=== PATIENT | female | born 1955 | race Caucasian/White ===

== ENCOUNTER 2018-09-30 13:41 | Emergency (ER) | payer MEDICARE, OTHER ==
[~2018-09-30] VITALS: Ht 162.6 cm; Wt 100.2 kg
--- NOTE | 2018-09-30 13:50 | NUR ---
CECE FROM [facility] FOR GROUND LEVEL FALL THIS AM. PT USES WALKER AT [facility]. PT C/O PAIN AT MID-BACK AREA, LOWER BACK AREA, AND HIP. DENIES LOC. TO ER BED 9, HOOKED TO MONITOR, AWAITING MD ALVAREZ
--- NOTE | 2018-09-30 14:15 | NUR ---
PA FOSTER AT BEDSIDE
[2018-09-30] MEDS ORDERED: CYCLOBENZAPRINE 10 MG TABLET ONE (14:24)
[2018-09-30] MEDS ORDERED: ACETAMINOPHEN ES 500 MG TABLET ONE (14:24)
--- NOTE | 2018-09-30 14:27 | NUR ---
OUT FOR HEAD, CERVICAL, THORACIC AND LUMBAR CT
[2018-09-30] MEDS ORDERED: CYCLOBENZAPRINE 10 MG TABLET PO ONE (14:30)
[2018-09-30] MEDS ORDERED: ACETAMINOPHEN ES 500 MG TABLET PO ONE (14:30)
[2018-09-30 15:00] LABS: BASOPHILS # (AUTO) 0.1 /CMM (0.0-0.2); BASOPHILS % (AUTO) 1.1 % (0.0-2.0); EOSINOPHILS % (AUTO) 6.9 % (0.0-6.0); HEMATOCRIT 37 % (33-45); HEMOGLOBIN 11.9 g/dL (11.5-14.8); LYMPHOCYTES # (AUTO) 1.8 /CMM (0.8-4.8); LYMPHOCYTES % (AUTO) 27.9 % (20.0-44.0); MEAN CORPUSCULAR HGB CONC 33 g/dl (31.0-36.0); MEAN CORPUSCULAR VOLUME 95 fL (82-100); MONOCYTES # (AUTO) 0.5 /CMM (0.1-1.30); MONOCYTES % (AUTO) 7.2 % (2.0-12.0); NEUTROPHILS # (AUTO) 3.7 /CMM (1.8-8.9); NEUTROPHILS % (AUTO) 56.9 % (43.0-81.0); PLATELET COUNT (AUTO) 296 /CMM (150-450); RED BLOOD CELL COUNT(AUTO) 3.84 MIL/uL (4.0-5.2); WHITE BLOOD COUNT (AUTO) 6.4 K/uL (4.3-11.0)
[2018-09-30 15:07] LABS: CALCIUM, SERUM 8.8 mg/dL (8.5-10.1); CREATININE 1.7 mg/dL (0.6-1.3); POTASSIUM 4.8 mmol/L (3.5-5.1)
--- NOTE | 2018-09-30 16:43 | NUR ---
CALLED [facility] TO ARRANGE A S TRANSPORT BACK TO [facility]. ETA OF 193 GIVEN. TRIP#: [id number]
--- NOTE | 2018-09-30 19:15 | NUR ---
GOT CALL FROM TRANSPORT ETA NOW IS 2014
--- NOTE | 2018-09-30 19:18 | NUR ---
REPORT GIVEN TO ANCELMO RICKETTS FOR KANIKA
--- NOTE | 2018-09-30 19:27 | NUR ---
received report from sacha oliver for continuity of care.
[2018-09-30 20:53] VITALS: BP 126/92
[2018-11-03] MEDS ORDERED: DOCU-141 PO (13:42)
[2018-11-03] MEDS ORDERED: CARV6.252 PO (13:42)
== END 2018-09-30 20:54 ==
LOC: ER 13:44
DX: M54.5 Low back pain (principal); M54.2 Cervicalgia; M25.511 Pain in right shoulder; M25.551 Pain in right hip; R79.89 Other specified abnormal findings of blood chemistry; E03.9 Hypothyroidism, unspecified; I10 Essential (primary) hypertension; B05.9 Measles without complication; G40.909 Epilepsy, unspecified, not intractable, without status epilepticus; J45.909 Unspecified asthma, uncomplicated; B02.9 Zoster without complications; Z88.0 Allergy status to penicillin; W18.39XA Other fall on same level, initial encounter; Y93.89 Activity, other specified; Y92.89 Other specified places as the place of occurrence of the external cause; Y99.8 Other external cause status
CPT/HCPCS: 36415; 70450-TC; 72125-TC; 72128-TC; 72131-TC; 72192-TC; 73030-TC; 80048-TC; 85025-TC; 85730-TC

== ENCOUNTER 2018-10-18 12:22 | Inpatient (IN) | payer MEDICARE, OTHER ==
[2018-10-18] VITALS: BP 118/66
[~2018-10-18] VITALS: Ht 162.6 cm; Wt 98.9 kg
--- NOTE | 2018-10-18 12:22 | NUR ---
PT BIBPA FROM SNF FOR LEFT SIDE CP X TODAY, PT AAOX2-3, RESPIRATIONS EVEN AND UNLABORED, NO SOB, NAD NOTED, VSS, PENDING ER PROVIDER ANTONIO
[2018-10-18 12:46] LABS: BASOPHILS # (AUTO) 0.1 /CMM (0.0-0.2); BASOPHILS % (AUTO) 1.4 % (0.0-2.0); EOSINOPHILS % (AUTO) 13.9 % (0.0-6.0); HEMATOCRIT 35 % (33-45); HEMOGLOBIN 11.5 g/dL (11.5-14.8); LYMPHOCYTES # (AUTO) 1.3 /CMM (0.8-4.8); MEAN CORPUSCULAR HGB CONC 33 g/dl (31.0-36.0); MEAN CORPUSCULAR VOLUME 95 fL (82-100); MONOCYTES # (AUTO) 0.5 /CMM (0.1-1.30); MONOCYTES % (AUTO) 7.8 % (2.0-12.0); NEUTROPHILS # (AUTO) 3.3 /CMM (1.8-8.9); NEUTROPHILS % (AUTO) 55.9 % (43.0-81.0); PLATELET COUNT (AUTO) 335 /CMM (150-450); RED BLOOD CELL COUNT(AUTO) 3.73 MIL/uL (4.0-5.2)
[2018-10-18] MEDS ORDERED: ONDANSETRON HCL/PF 4 MG/2 ML VIAL ONE (12:48)
[2018-10-18] MEDS ORDERED: MORPHINE SULFATE INJ 10 MG/ML DISP.SYRIN ONE (12:49)
[2018-10-18 12:52] LABS: CALCIUM, SERUM 9.2 mg/dL (8.5-10.1); CREATININE 1.6 mg/dL (0.6-1.3); POTASSIUM 4.7 mmol/L (3.5-5.1)
[2018-10-18] MEDS ORDERED: ONDANSETRON HCL/PF 4 MG/2 ML VIAL IVP ONE (13:00)
[2018-10-18] MEDS ORDERED: MORPHINE SULFATE INJ 2 MG/ML DISP.SYRIN IV ONE (13:00)
--- NOTE | 2018-10-18 13:19 | NUR ---
PAGING EPIC CANTEEN MANAGER
--- NOTE | 2018-10-18 13:28 | NUR ---
CALLED NURSING TECHNOLOGY SPECIALIST FOR TELE BED
[2018-10-18] MEDS ORDERED: ASPI-1152 PO (13:29)
[2018-10-18] MEDS ORDERED: LEVO25TA9 PO (13:29)
[2018-10-18] MEDS ORDERED: LAMO100T PO (13:29)
[2018-10-18] MEDS ORDERED: GABA-532 PO (13:29)
[2018-10-18] MEDS ORDERED: HYDR-4384 PO (13:29)
[2018-10-18] MEDS ORDERED: TOPI50TA24 PO (13:29)
[2018-10-18] MEDS ORDERED: CYCL5TAB PO (13:29)
[2018-10-18] MEDS ORDERED: FLUT1DIS IH (13:29)
[2018-10-18] MEDS ORDERED: ASPIRIN 325 MG TABLET PO ONE (13:30)
[2018-10-18] MEDS ORDERED: ASPIRIN 325 MG TABLET ONE (13:35)
--- NOTE | 2018-10-18 13:57 | NUR ---
CALLED 1ST FLOOR TO GIVE REPORT, NURSE WENT ON BREAK, WILL CALL BACK
--- NOTE | 2018-10-18 14:41 | NUR ---
REPORT GIVEN TO JAMARCUS LICONA FOR KANIKA
--- NOTE | 2018-10-18 14:43 | NUR ---
RN ADMITTING NOTES PATIENT ADMITTED FOR ED VIA GURNEY. ABLE [place]. A/O X3 NO SIGNS OR SYMPTOMS OF RESPIRATORY DISTRESS NOTED C/O CHEST PAIN 9/10 NORCO GIVEN SKIN INTACT BASELINE MILD WEAKNESS TO (R) SIDE NO DIFFICULTY SWALLOWING. ABLE TO FOLLOW COMMANDS. VITALS TEMP 98.1 HR 81 RESP 20 O2 95% ON RA BP 142/80. LABS AND EKG DONE WILL CONTINUE TO MONITOR.
--- NOTE | 2018-10-18 14:59 | NUR ---
PT TRANSPORTED TO ROOM 120-2 TELE VIA ACLS PROTOCOL
[2018-10-18] MEDS ORDERED: ONDANSETRON HCL/PF 4 MG/2 ML VIAL IVP PRN (16:30)
[2018-10-18] MEDS: HYDROCODONE/APAP 5/325MG 1 EACH TABLET PO PRN (16:56)
[2018-10-18] MEDS: GABAPENTIN 100 MG CAPSULE PO SCH (18:18)
[2018-10-18] MEDS: LamoTRIgine 100 MG TABLET PO SCH (18:18)
[2018-10-18] MEDS: LEVOTHYROXINE SODIUM 25 MCG TABLET PO SCH (18:18)
[2018-10-18] MEDS: TOPIRAMATE 100 MG TABLET PO SCH (18:19)
[2018-10-18] MEDS: CARVEDILOL 6.25 MG TABLET PO SCH (18:19)
--- NOTE | 2018-10-18 19:47 | NUR ---
FRONT END ALIGNMENT SPECIALIST CLOSING NOTES REPORT GIVEN TO NOC. ENDORSED THAT TROPONIN IS TRENDING DOWN KANIKA.
[2018-10-18 20:00] VITALS: BP 112/67
[2018-10-18] MEDS: LEVOFLOXACIN 750 MG /D5W 150ML 750 MG in PREMIX 1 EA IV SCH (20:55)
--- NOTE | 2018-10-18 22:00 | NUR ---
MANPOWER DEVELOPMENT SPECIALIST NOTES RECEIVED PT ON BED. A/O X 4. ON ROOM AIR SATURATING WELL. ON TELE MONITOR SR. NO RESPIRATORY DISTRESS NOTED. IV ACCESS ON RAC #20 SL. HEAD OF BED ELEVATED. SIDE RAILS UP. CALL LIGHT WITHIN REACH. BED ALARM ON. WILL CONTINUE TO MONITOR PT CLOSELY.
[2018-10-18] MEDS ORDERED: MORPHINE SULFATE INJ 4 MG/ML DISP.SYRIN ONE ×2 (23:18→23:58)
[2018-10-18] MEDS: MORPHINE SULFATE INJ 2 MG/ML DISP.SYRIN IV PRN (23:21)
[2018-10-18] MEDS: NITROGLYCERIN 0.4 MG/TAB BOTTLE SL PRN ×2 (23:21→23:27)
--- NOTE | 2018-10-18 23:35 | NUR ---
ENGINEER CONDUCTOR NOTES PT LEFT SIDED BREAST AND SOME CHEST PAIN 6/10. GIVEN NITROGLYCERIN X2 AND MORPHINE 1MG. BLOOD PRESSURE WNL, SATURATING 94 ON ROOM AIR, NO RESPIRATORY DISTRESS NOTED. PT RELIEVED NO MORE CHEST PAIN. BREAST PAIN OF 3/10.
[2018-10-19] VITALS: BP 118/66
[2018-10-19] MEDS: MORPHINE SULFATE INJ 2 MG/ML DISP.SYRIN IV PRN (00:02)
--- NOTE | 2018-10-19 00:05 | NUR ---
CHEMIST STEROIDS NOTES PT COMPLAINTS OF BACK PAIN WITH SOME CHEST PAIN GIVEN MORPHINE 1MG. BLOOD PRESSURE 111/60, ON ROOM AIR 94 NO RESPIRATORY DISTRESS NOTED. ON TELE MONITOR SR 89. WILL MONITOR PT CLOSELY.
--- NOTE | 2018-10-19 01:07 | NUR ---
ACRYLIC FABRICATOR NOTES PAGED SELECTOR PACKER REGARDING TROPONIN OF 0.091. AWAITING ORDERS.
--- NOTE | 2018-10-19 02:03 | NUR ---
PROTOTYPE MACHINIST NOTES TERESA SORENSON ORDERED TROPONIN 8AM. WILL MONITOR PT CLOSELY.
--- NOTE | 2018-10-19 02:29 | NUR ---
SWEDISH MASSEUSE NOTES PT SLEEPING COMFORTABLE, NO COMPLAINTS OF PAIN.
[2018-10-19 04:00] VITALS: BP 108/68
[2018-10-19] MEDS: HYDROCODONE/APAP 5/325MG 1 EACH TABLET PO PRN ×2 (05:44→15:29)
--- NOTE | 2018-10-19 06:40 | NUR ---
REHAB ASSISTANT NOTES PT COMPLAINTS OF CHEST PAIN AND LEFT LOWER BREAST PAIN. RELIEVED BY MORPHINE. CALLED MODEL ENGINE MECHANIC FOR ORDERS, ORDERED ANOTHER TROPONIN LEVEL @ 8AM. HEAD OF BED ELEVATED. BED ALARM ON. SIDE RAILS UP. CALL LIGHT WITHIN REACH. WILL ENDORSE TO THE AM NURSE FOR CONTINUITY OF CARE.
[2018-10-19] MEDS: LEVOTHYROXINE SODIUM 25 MCG TABLET PO SCH (07:46)
[2018-10-19] MEDS: FLUTICASONE/VILANTEROL 1 EACH BLST.W.DEV IH SCH (07:47)
[2018-10-19] MEDS: GABAPENTIN 100 MG CAPSULE PO SCH ×2 (07:48→16:59)
[2018-10-19] MEDS: LamoTRIgine 100 MG TABLET PO SCH ×2 (07:48→16:59)
[2018-10-19] MEDS: CARVEDILOL 6.25 MG TABLET PO SCH ×2 (07:48→21:01)
[2018-10-19] MEDS: TOPIRAMATE 100 MG TABLET PO SCH ×2 (07:49→16:59)
[2018-10-19] MEDS: CYCLOBENZAPRINE 10 MG TABLET PO PRN (07:50)
[2018-10-19 08:00] VITALS: BP 113/74
[2018-10-19] MEDS: ASPIRIN EC 81 MG TABLET.DR PO SCH (08:02)
[2018-10-19] MEDS ORDERED: MORPHINE SULFATE INJ 10 MG/ML DISP.SYRIN IV PRN (08:30)
[2018-10-19] MEDS: ATORVASTATIN 10 MG TABLET PO SCH (10:08)
[2018-10-19 12:00] VITALS: BP 96/62
[2018-10-19] MEDS ORDERED: MAGNESIUM HYDROXIDE 30 ML UDC PO PRN (15:30)
[2018-10-19 16:00] VITALS: BP 102/70
[2018-10-19 16:33] LABS: BASOPHILS # (AUTO) 0.1 /CMM (0.0-0.2); BASOPHILS % (AUTO) 1.6 % (0.0-2.0); EOSINOPHILS % (AUTO) 14.2 % (0.0-6.0); HEMATOCRIT 33 % (33-45); HEMOGLOBIN 10.8 g/dL (11.5-14.8); LYMPHOCYTES # (AUTO) 1.3 /CMM (0.8-4.8); LYMPHOCYTES % (AUTO) 26.3 % (20.0-44.0); MEAN CORPUSCULAR HGB CONC 32 g/dl (31.0-36.0); MEAN CORPUSCULAR VOLUME 94 fL (82-100); MONOCYTES # (AUTO) 0.5 /CMM (0.1-1.30); MONOCYTES % (AUTO) 10.2 % (2.0-12.0); NEUTROPHILS # (AUTO) 2.3 /CMM (1.8-8.9); NEUTROPHILS % (AUTO) 47.7 % (43.0-81.0); PLATELET COUNT (AUTO) 319 /CMM (150-450); RED BLOOD CELL COUNT(AUTO) 3.57 MIL/uL (4.0-5.2); WHITE BLOOD COUNT (AUTO) 4.8 K/uL (4.3-11.0)
[2018-10-19 16:43] LABS: CALCIUM, SERUM 8.8 mg/dL (8.5-10.1); CREATININE 1.7 mg/dL (0.6-1.3); POTASSIUM 4.7 mmol/L (3.5-5.1)
--- NOTE | 2018-10-19 19:40 | NUR ---
MANAGER PROJECT MANAGEMENT OPENING NOTES RECEIVED PATIENT IN BED, ALERT, ORIENTED X 4. BREATHING EVEN AND UNLABORED. COMPLAINING OF L CHEST/ UNDER BREAST PAIN, 05/10. PAIN MANAGEMENT INITIATED. BP- 115/56, SR- 94. MORPHINE 1MG GIVEN ORDERED. PATIENT STATED MORPHINE IS WHAT HELPS HER BEST. TELE MONITOR IN PLACE, SR- 94. CALL LOWE WITHIN REACH. BED IN LOW, LOCKED POSITION. PATIENT STABLE ENDORSED BY THE MORNING RN. WILL CONTINUE TO MONITOR ACCORDINGLY
[2018-10-19 20:00] VITALS: BP 115/56
[2018-10-20] VITALS: BP 113/65
[2018-10-20] MEDS: HYDROCODONE/APAP 5/325MG 1 EACH TABLET PO PRN ×3 (02:33→22:55)
--- NOTE | 2018-10-20 02:36 | NUR ---
SWEAT BOX ATTENDANT NOTES PATIENT C/O SHARP PAIN ON AROUND LEFT ANKLE, 05/10. PATIENT SAID SHE EXPERIENCES THIS PAIN FROM TIME TO TIME. NORCO 5-325 GIVEN ORDERED.
[2018-10-20 04:00] VITALS: BP 116/60
--- NOTE | 2018-10-20 06:40 | NUR ---
GEODESY TEACHER CLOSING NOTES PATIENT RESTING IN BED, ALERT, ORIENTED X 4. BREATHING EVEN AND UNLABORED. NOT IN ANY DISTRESS. NO COMPLAINTS OF PAIN OR DISCOMFORT OF THIS TIME. TELE MONITOR IN PLACE, SINUS RHYTHM 84. SAFETY MEASURES IN PLACE. CALL LOWE WITHIN REACH. BED IN LOW, LOCKED POSITION. WILL ENDORSE KANIKA TO ONCOMING RN.
[2018-10-20 07:24] LABS: HEMATOCRIT 31 % (33-45); HEMOGLOBIN 10.1 g/dL (11.5-14.8); MEAN CORPUSCULAR HGB CONC 33 g/dl (31.0-36.0); MEAN CORPUSCULAR VOLUME 94 fL (82-100); PLATELET COUNT (AUTO) 283 /CMM (150-450); RED BLOOD CELL COUNT(AUTO) 3.27 MIL/uL (4.0-5.2); WHITE BLOOD COUNT (AUTO) 5.4 K/uL (4.3-11.0)
[2018-10-20 07:33] LABS: BILIRUBIN,TOTAL 0.2 mg/dL (0.2-1.0); CALCIUM, SERUM 8.7 mg/dL (8.5-10.1); CREATININE 1.8 mg/dL (0.6-1.3); MAGNESIUM 1.9 mg/dL (1.8-2.4); PHOSPHORUS 4.5 mg/dL (2.5-4.9); POTASSIUM 3.8 mmol/L (3.5-5.1); TOTAL PROTEIN, SERUM 6.4 g/dL (6.4-8.2)
--- NOTE | 2018-10-20 07:49 | NUR ---
LINEN CLERK NOTE RECEIVED PATIENT IN BED, RESTING COMFORTABLY IN BED AT THIS TIME, ON TELE MONITOR SR HR 91, RT AC HL INTACT , BED IN ,LOWEST AND LOCKED POSITION , CALL LIGHT WITHIN REACH , RESPIRATION UNLABORED ,ON RA ,NO SOB ,WILL CONT TO MONITOR CLOSELY
[2018-10-20 08:00] VITALS: BP 120/65
[2018-10-20] MEDS: TOPIRAMATE 100 MG TABLET PO SCH ×2 (08:28→16:48)
[2018-10-20] MEDS: LamoTRIgine 100 MG TABLET PO SCH ×2 (08:29→16:48)
[2018-10-20] MEDS: GABAPENTIN 100 MG CAPSULE PO SCH ×2 (08:30→16:48)
[2018-10-20] MEDS: ASPIRIN EC 81 MG TABLET.DR PO SCH (08:30)
[2018-10-20] MEDS: LEVOTHYROXINE SODIUM 25 MCG TABLET PO SCH (08:31)
[2018-10-20] MEDS: ATORVASTATIN 10 MG TABLET PO SCH (08:31)
[2018-10-20] MEDS: CARVEDILOL 6.25 MG TABLET PO SCH ×2 (08:36→20:49)
[2018-10-20] MEDS: FLUTICASONE/VILANTEROL 1 EACH BLST.W.DEV IH SCH (08:37)
[2018-10-20] MEDS: MUPIROCIN OINT 2% 22 GM TUBE SCH ×2 (08:45→20:51)
--- NOTE | 2018-10-20 09:00 | NUR ---
television parts tester note Doppler jm done as ordered negative ,dr arzola aware .also per dr cyndee duran do kidney us
[2018-10-20 10:03] LABS: EOSINOPHILS % (MANUAL) 14 % (0-4); LYMPHOCYTES % (MANUAL) 11 % (16-48); MONOCYTES % (MANUAL) 3 % (0-11.0); NEUTROPHILS % (MANUAL) 72 (42-76)
--- NOTE | 2018-10-20 10:44 | NUR ---
PURCHASER NOTE SPOOR WITH DR MCKENNA ABOUT TROP 0.065, WILL CONT TO MONITOR
[2018-10-20 12:00] VITALS: BP_SYST 120; BP_DIAS 65; BP_DIAS 66
--- NOTE | 2018-10-20 12:57 | NUR ---
TELE RNN NOTE US KIDNEY DONE ORDERED, UA COLLECTED ORDERED ,KEEP CLEAN DRY
[2018-10-20] MEDS: IV NS 0.9% 1,000 ML IV PRN (13:19)
--- NOTE | 2018-10-20 15:44 | NUR ---
VORTEX OPERATOR NOTE ASSISTED TO BR USING A WALKER , KEEP CLEAN DRY ,ALL NEEDS ATTENDED, CONT ON IVF ORDERED CALL LIGHT WITHIN REACH
[2018-10-20 16:00] VITALS: BP 94/65
[2018-10-20 17:31] LABS: APPEARANCE,URINE SL CLOUDY (CLEAR); BILIRUBIN,URINE NEGATIVE (NEGATIVE); BLOOD, URINE NEGATIVE Ery/uL (NEGATIVE); COLOR,URINE YELLOW (YELLOW); KETONES,URINE NEGATIVE (NEGATIVE); LEUKOCYTE ESTERASE ,URINE NEGATIVE (NEGATIVE); NITRITE, URINE NEGATIVE (NEGATIVE); PH,URINE 6.5 (5.0-8.0); PROTEIN,URINE NEGATIVE (NEGATIVE); UGLUCOSE NEGATIVE (NEGATIVE); UROBILINOGEN,URINE 0.2 EU/dL (0.2)
[2018-10-20 17:48] LABS: CREATININE, URINE 35.5 MG/DL (30.0-125.0); URINE TOTAL PROTEIN 3.2 mg/dL (0-11.9)
[2018-10-20 18:33] LABS: EOSINOPHIL,URINE None Seen
--- NOTE | 2018-10-20 18:41 | NUR ---
CHEMISTRY TUTOR NOTE NEW HL ON LT HAND RAMIRO 24 INSERTED WITH GOOD V BLOOD RETURN ,WILL F\U
--- NOTE | 2018-10-20 19:50 | NUR ---
ACTOR UNDERSTUDY NOTE, RECEIVED PATIENT IN BED WATCHING TV AT THIS TIME, BREATHING EVEN AND UNLABORED , NO SOB/ACUTE DISTRESS NOTED AT THIS TIME, ON TELE MONITOR SR HR 90S AT THIS TIME, RT HAND IV ACCESS INTACT AND PATENT, CALL LIGHT WITHIN REACH, BED IN LOW AND LOCKED POSITION, WILL CONTINUE TO MONITOR CLOSELY,
[2018-10-20 20:00] VITALS: BP 117/53
[2018-10-20] MEDS: LEVOFLOXACIN 750 MG /D5W 150ML 750 MG in PREMIX 1 EA IV SCH (20:48)
[2018-10-20] MEDS: CYCLOBENZAPRINE 10 MG TABLET PO PRN (20:49)
[2018-10-21] MEDS: IV NS 0.9% 1,000 ML IV PRN (03:27)
[2018-10-21 04:00] VITALS: BP 111/63
--- NOTE | 2018-10-21 06:40 | NUR ---
RN CLOSING NOTES, PATIENT IN BED SLEEPING AT THIS TIME, BREATHING EVEN AND UNLABORED , NO SOB/ACUTE DISTRESS NOTED AT THIS TIME, RT HAND IV ACCESS INTACT AND PATENT, IVF INFUSING WELL AND PATIENT TOLERATED WELL, PATIENT STABLE DURING THE NIGHT, CALL LIGHT WITHIN REACH, BED IN LOW AND LOCKED POSITION, WILL ENDORSE CONTINUITY OF CARE TO ONCOMING NURSE.
[2018-10-21 07:06] LABS: BASOPHILS # (AUTO) 0.1 /CMM (0.0-0.2); EOSINOPHILS % (AUTO) 11.3 % (0.0-6.0); HEMATOCRIT 32 % (33-45); HEMOGLOBIN 10.4 g/dL (11.5-14.8); LYMPHOCYTES # (AUTO) 1.6 /CMM (0.8-4.8); LYMPHOCYTES % (AUTO) 30.1 % (20.0-44.0); MEAN CORPUSCULAR HGB CONC 33 g/dl (31.0-36.0); MEAN CORPUSCULAR VOLUME 94 fL (82-100); MONOCYTES # (AUTO) 0.6 /CMM (0.1-1.30); MONOCYTES % (AUTO) 11.8 % (2.0-12.0); NEUTROPHILS # (AUTO) 2.5 /CMM (1.8-8.9); NEUTROPHILS % (AUTO) 45.8 % (43.0-81.0); PLATELET COUNT (AUTO) 264 /CMM (150-450); RED BLOOD CELL COUNT(AUTO) 3.41 MIL/uL (4.0-5.2); WHITE BLOOD COUNT (AUTO) 5.4 K/uL (4.3-11.0)
[2018-10-21 07:33] LABS: ALBUMIN 2.9 g/dL (3.4-5.0); BILIRUBIN,TOTAL 0.2 mg/dL (0.2-1.0); CALCIUM, SERUM 8.4 mg/dL (8.5-10.1); CREATININE 1.6 mg/dL (0.6-1.3); MAGNESIUM 1.9 mg/dL (1.8-2.4); POTASSIUM 4.2 mmol/L (3.5-5.1); TOTAL PROTEIN, SERUM 6.3 g/dL (6.4-8.2)
[2018-10-21 08:00] VITALS: BP 127/75
[2018-10-21 08:16] VITALS: BP 127/75
[2018-10-21] MEDS: LEVOTHYROXINE SODIUM 25 MCG TABLET PO SCH (08:43)
[2018-10-21] MEDS ORDERED: CARVEDILOL 12.5 MG TABLET PO SCH (09:00)
[2018-10-21] MEDS: ATORVASTATIN 10 MG TABLET PO SCH (09:57)
[2018-10-21] MEDS: TOPIRAMATE 100 MG TABLET PO SCH (09:57)
[2018-10-21] MEDS: LamoTRIgine 100 MG TABLET PO SCH (09:57)
[2018-10-21] MEDS: GABAPENTIN 100 MG CAPSULE PO SCH (09:57)
[2018-10-21] MEDS: ASPIRIN EC 81 MG TABLET.DR PO SCH (09:58)
[2018-10-21] MEDS: FLUTICASONE/VILANTEROL 1 EACH BLST.W.DEV IH SCH (10:06)
[2018-10-21] MEDS: MUPIROCIN OINT 2% 22 GM TUBE SCH (10:06)
[2018-10-21] MEDS: HYDROCODONE/APAP 5/325MG 1 EACH TABLET PO PRN (11:40)
[2018-10-21 12:39] VITALS: BP 138/75
[2018-10-22] MEDS ORDERED: REGADENOSON 0.4 MG/5 ML DISP.SYRIN IVP ONE (08:00)
[2018-10-22 10:17] LABS: *SPE A/G RATIO 1.1 (0.7-1.7); *SPE ALBUMIN 3.1 g/dL (2.9-4.4); *SPE ALPHA-1-GLOBULIN 0.2 g/dL (0.0-0.4); *SPE ALPHA-2-GLOBULIN 0.7 g/dL (0.4-1.0); *SPE GLOBULIN, TOTAL 2.8 g/dL (2.2-3.9); *SPE M-SPIKE Not Observed g/dL (Not Observed); *SPEGAMMA GLOBULIN 0.9 g/dL (0.4-1.8)
[2018-10-22 12:10] LABS: PTH, INTACT 58 pg/mL (15-65)
[2018-11-03] MEDS ORDERED: CARV6.252 PO (13:42)
[2018-11-03] MEDS ORDERED: DOCU-141 PO (13:42)
== END 2018-10-21 14:30 | disposition home or self-care (01) | DRG 280 ==
LOC: ER 12:23 → UNDOADMIN 14:02 → TELE1 14:02 → ER 15:12 → TELE1 15:40 → MEDSG1 10-20 20:50
PROVIDERS: ADMIT Internal Medicine; ATTEND Internal Medicine
DX: I21.4 Non-ST elevation (NSTEMI) myocardial infarction (principal); N17.0 Acute kidney failure with tubular necrosis; J18.9 Pneumonia, unspecified organism; G40.909 Epilepsy, unspecified, not intractable, without status epilepticus; J45.909 Unspecified asthma, uncomplicated; E78.5 Hyperlipidemia, unspecified; F32.9 Major depressive disorder, single episode, unspecified; Z98.890 Other specified postprocedural states; Z88.0 Allergy status to penicillin; Z88.8 Allergy status to other drugs, medicaments and biological substances; Z91.018 Allergy to other foods; I12.9 Hypertensive chronic kidney disease with stage 1 through stage 4 chronic kidney disease, or unspecified chronic kidney disease; N18.9 Chronic kidney disease, unspecified; R73.9 Hyperglycemia, unspecified; F39 Unspecified mood [affective] disorder; J44.9 Chronic obstructive pulmonary disease, unspecified
CPT/HCPCS: 36415; 71045-TC; 76770-TC; 80048-TC; 80053-TC; 81000-TC; 82550-TC; 82570-TC; 83735-TC; 83970; 84100-TC; 84155; 84155-TC; 84165; 84300-TC; 84484-TC; 85025-TC; 85730-TC; 87081-TC; 93307-TC; 93970-TC; A4216; A6402; G0378; J1956; J2270; J2405; J7030

== ENCOUNTER 2018-11-01 16:50 | Inpatient (IN) | payer MEDICARE, OTHER ==
[~2018-11-01] VITALS: Ht 162.6 cm; Wt 98.4 kg
[~2018-11-01 16:50] MED LIST: ASPI-1152 PO; CYCL5TAB PO; FLUT1DIS IH; GABA-532 PO; HYDR-4384 PO; LAMO100T PO; LEVO25TA9 PO; TOPI50TA24 PO
--- NOTE | 2018-11-01 16:50 | NUR ---
PT BIBRA FROM [facility] FOR CP X 2HRS 910 RADIATING TO L CLAVICLE, PT IS AAOX4, NOT IN RESPIRATORY DISTRESS, V/S STABLE, KEPT RESTED AND COMFORTABLE, HOOKED TO MONITOR.
--- NOTE | 2018-11-01 17:00 | NUR ---
SEEN AND EXAMINED BY DR. VERA.
--- NOTE | 2018-11-01 17:10 | NUR ---
PT LABS DRAWNED AND SENT TO LAB. AWAITING RESULTS.
[2018-11-01 17:20] LABS: BASOPHILS # (AUTO) 0.1 /CMM (0.0-0.2); BASOPHILS % (AUTO) 1.8 % (0.0-2.0); EOSINOPHILS % (AUTO) 17.4 % (0.0-6.0); HEMATOCRIT 36 % (33-45); HEMOGLOBIN 11.5 g/dL (11.5-14.8); LYMPHOCYTES % (AUTO) 29.3 % (20.0-44.0); MEAN CORPUSCULAR HGB CONC 32 g/dl (31.0-36.0); MEAN CORPUSCULAR VOLUME 93 fL (82-100); MONOCYTES # (AUTO) 0.5 /CMM (0.1-1.30); MONOCYTES % (AUTO) 7.5 % (2.0-12.0); PLATELET COUNT (AUTO) 380 /CMM (150-450); RED BLOOD CELL COUNT(AUTO) 3.82 MIL/uL (4.0-5.2); WHITE BLOOD COUNT (AUTO) 6.9 K/uL (4.3-11.0)
[2018-11-01] MEDS ORDERED: ATOR10TA PEG (17:20)
[2018-11-01] MEDS ORDERED: MONT10TA22 PO (17:20)
[2018-11-01] MEDS ORDERED: LISI10TA5 PO (17:20)
--- NOTE | 2018-11-01 17:41 | NUR ---
RADIOLOGY AT BEDSIDE FOR XRAY.
[2018-11-01 17:52] LABS: CALCIUM, SERUM 9.6 mg/dL (8.5-10.1); CARBON DIOXIDE 25 mmol/L (21-32); CHLORIDE 107 mmol/L (98-107); CREATININE 1.5 mg/dL (0.6-1.3); GLUCOSE 110 mg/dL (74-106); POTASSIUM 4.4 mmol/L (3.5-5.1); SODIUM SERUM 144 mmol/L (136-145); UREA NITROGEN, BLOOD 20 mg/dL (7-18)
[2018-11-01 17:57] LABS: ALANINE AMINOTRANSFERASE 14 U/L (12-78); ALBUMIN 3.8 g/dL (3.4-5.0); ALKALINE PHOSPHATASE 147 U/L (46-116); ASPARTATE AMINOTRANSFERASE 15 U/L (15-37); BILIRUBIN,DIRECT 0.1 mg/dL (0.0-0.2); BILIRUBIN,TOTAL 0.3 mg/dL (0.2-1.0); TOTAL PROTEIN, SERUM 7.9 g/dL (6.4-8.2)
--- NOTE | 2018-11-01 19:06 | NUR ---
REPORT GIVEN TO JAMARCUS SPENCE FOR KANIKA.
--- NOTE | 2018-11-01 19:17 | NUR ---
Patient is resting comfortably in bed with eyes closed. Easily aroused. VSS. NAD NOTED.
[2018-11-01] MEDS ORDERED: DOCUSATE SODIUM 100 MG CAPSULE PO PRN (19:30)
[2018-11-01] MEDS ORDERED: MAG HYDROX/AL HYDROX/SIMETH 30 ML UDC PO PRN (19:30)
[2018-11-01] MEDS ORDERED: ONDANSETRON HCL/PF 4 MG/2 ML VIAL IVP PRN (19:30)
[2018-11-01] MEDS ORDERED: ACETAMINOPHEN 325 MG TABLET PO PRN (19:30)
[2018-11-01] MEDS ORDERED: NITROGLYCERIN 0.4 MG/TAB BOTTLE SL PRN (19:30)
--- NOTE | 2018-11-01 20:00 | NUR ---
PT IS GOING TO 324-2, TELE. ADMITTING IS T STATCY, DNP
--- NOTE | 2018-11-01 20:10 | NUR ---
Report given to HUSEYIN RICKETTS FOR KANIKA.
[2018-11-01 20:22] VITALS: BP 138/75
[2018-11-01 20:25] VITALS: BP 138/75
[2018-11-01] MEDS ORDERED: ASPIRIN 81 MG TAB.CHEW PO ONE (20:30)
--- NOTE | 2018-11-01 20:40 | NUR ---
MANAGER ENVIRONMENTAL ADMITTING NOTES ADMITTED 64 Y/O FEMALE PATIENT VIA GURNEY, BREATHING EVEN AND UNLABORED, WITH COMPLAINTS OF MILD DISCOMFORT NOTED, ALL NEEDS ATTENDED, CONNECTED TO EXTERNAL TELE MONITOR,ADMISSION AND INITIAL ASSESSMENT DONE. SAFETY MEASURES IN PLACED. WILL MONITOR ACCORDINGLY.
[2018-11-01] MEDS: MONTELUKAST SODIUM (10MG) 10 MG TABLET PO SCH (22:00)
[2018-11-01] MEDS ORDERED: SIMVASTATIN 20 MG TABLET PO SCH (22:00)
[2018-11-02] VITALS: BP 103/66
[2018-11-02] MEDS: HYDROCODONE/APAP 5/325MG 1 EACH TABLET PO PRN ×2 (00:26→12:21)
--- NOTE | 2018-11-02 00:40 | NUR ---
LITHOGRAPHIC PLATEMAKER NOTES REPORT GIVEN TO NURSE ESPINO FOR CONTINUITY OF CARE.
--- NOTE | 2018-11-02 00:52 | NUR ---
WHEAT INSPECTOR OPENING NOTES: RECEIVED PT ON ROOM AIR AND IS TOLERATING WELL. PT ON TELE MONITOR AND READING SHOWS SR 88 WITH INVERTED T WAVE. PT SAYING HER CHEST PAIN IS GRADUALLY GOING DOWN SHE JUST RECEIVED PAIN MED. PT HAS IV ON R AC #20G AND IS PATENT AND INTACT. CURRENTLY H/L. BED ALARM ACTIVATED. INSTRUCTED PT TO USE CALL LIGHT WHEN SHE NEEDS ASSISTANCE. BED KEPT IN LOW, LOCKED POSITION, AND SIDE RAILS X 2UP. WILL CONTINUE TO MONITOR PT.
[2018-11-02] MEDS ORDERED: ASPIRIN EC 81 MG TABLET.DR PO ONE (00:57)
--- NOTE | 2018-11-02 03:46 | NUR ---
ALUMINA PLANT SUPERVISOR NOTES: PT COMPLAINING OF A HEADACHE SHE JUST WOKE UP. PT WAS ADMINISTERED TYLENOL 650MG PO. WILL CONTINUE TO MONITOR.
[2018-11-02 04:00] VITALS: BP 104/61
[2018-11-02 07:14] LABS: BASOPHILS # (AUTO) 0.1 /CMM (0.0-0.2); BASOPHILS % (AUTO) 1.5 % (0.0-2.0); EOSINOPHILS % (AUTO) 17.4 % (0.0-6.0); HEMATOCRIT 34 % (33-45); HEMOGLOBIN 11.1 g/dL (11.5-14.8); LYMPHOCYTES # (AUTO) 1.9 /CMM (0.8-4.8); LYMPHOCYTES % (AUTO) 27.7 % (20.0-44.0); MEAN CORPUSCULAR HGB CONC 33 g/dl (31.0-36.0); MEAN CORPUSCULAR VOLUME 92 fL (82-100); MONOCYTES # (AUTO) 0.6 /CMM (0.1-1.30); MONOCYTES % (AUTO) 8.9 % (2.0-12.0); NEUTROPHILS # (AUTO) 3.1 /CMM (1.8-8.9); NEUTROPHILS % (AUTO) 44.5 % (43.0-81.0); PLATELET COUNT (AUTO) 320 /CMM (150-450); RED BLOOD CELL COUNT(AUTO) 3.68 MIL/uL (4.0-5.2)
[2018-11-02 07:30] LABS: ALBUMIN 3.4 g/dL (3.4-5.0); BILIRUBIN,TOTAL 0.3 mg/dL (0.2-1.0); CALCIUM, SERUM 8.8 mg/dL (8.5-10.1); CREATININE 1.6 mg/dL (0.6-1.3); MAGNESIUM 2.2 mg/dL (1.8-2.4); PHOSPHORUS 4.7 mg/dL (2.5-4.9); POTASSIUM 4.3 mmol/L (3.5-5.1)
[2018-11-02 07:40] LABS: THYROID STIMULATING HORMONE 1.872 uIU/mL (0.358-3.74)
--- NOTE | 2018-11-02 07:41 | NUR ---
MANAGER SALES TRAINING CLOSING NOTES: ALL NEEDS WERE ATTENDED AND ANTICIPATED FOR. PT REMAINS ON ROOM AIR AND IS TOLERATING WELL. PT ASLEEP AT THIS TIME. PT'S IV REMAINS INTACT. CURRENTLY H/L. BED ALARM ACTIVATED. BED KEPT IN LOW, LOCKED POSITION, AND SIDE RAILS X2UP. PT ON TELE BOX AND READING SHOWS SR 70S WITH INVERTED T WAVE. BREAKFAST TRAY TO BE HELD. ENDORSED TO AM NURSE FOR KANIKA.
[2018-11-02 08:00] VITALS: BP_SYST 133; BP_SYST 139; BP_DIAS 68; BP_DIAS 70
[2018-11-02] MEDS ORDERED: CYCLOBENZAPRINE 10 MG TABLET PO PRN (09:00)
[2018-11-02] MEDS ORDERED: LISINOPRIL (10MG) 10 MG TABLET PO SCH (09:00)
[2018-11-02] MEDS ORDERED: FLUTICASONE/SALMETEROL DISKUS IH SCH (09:00)
[2018-11-02] MEDS: IV NS 0.9% 500 ML IV PRN ×2 (11:25→21:07)
[2018-11-02] MEDS: GABAPENTIN 100 MG CAPSULE PO SCH ×2 (12:07→18:13)
[2018-11-02] MEDS: ASPIRIN 81 MG TAB.CHEW PO SCH (12:07)
[2018-11-02] MEDS: FLUTICASONE/VILANTEROL 1 EACH BLST.W.DEV IH SCH (12:07)
[2018-11-02] MEDS: LamoTRIgine 100 MG TABLET PO SCH ×2 (12:08→18:13)
[2018-11-02] MEDS: CARVEDILOL 6.25 MG TABLET PO SCH ×2 (12:08→21:00)
[2018-11-02] MEDS: LEVOTHYROXINE SODIUM 25 MCG TABLET PO SCH (12:08)
[2018-11-02] MEDS: TOPIRAMATE 25 MG TABLET PO SCH ×2 (12:09→18:13)
[2018-11-02] MEDS: ATORVASTATIN 10 MG TABLET PEG SCH (12:09)
[2018-11-02 14:34] LABS: APPEARANCE,URINE CLEAR (CLEAR); BILIRUBIN,URINE NEGATIVE (NEGATIVE); BLOOD, URINE NEGATIVE Ery/uL (NEGATIVE); COLOR,URINE YELLOW (YELLOW); KETONES,URINE NEGATIVE (NEGATIVE); LEUKOCYTE ESTERASE ,URINE NEGATIVE (NEGATIVE); NITRITE, URINE NEGATIVE (NEGATIVE); PROTEIN,URINE NEGATIVE (NEGATIVE); UGLUCOSE NEGATIVE (NEGATIVE); UROBILINOGEN,URINE 0.2 EU/dL (0.2)
[2018-11-02 15:01] LABS: CREATININE, URINE 131.7 MG/DL (30.0-125.0); URINE TOTAL PROTEIN 14.1 mg/dL (0-11.9)
[2018-11-02 16:00] VITALS: BP 100/67
[2018-11-02 16:05] LABS: EOSINOPHIL,URINE None Seen
--- NOTE | 2018-11-02 18:00 | NUR ---
dr. arzola,dr. villanueva in to see pt. consent for ct angio on 11/03 signed.pt. medicated x2 for chest pain with norco and flexeril with relief.urine sent as per orders in computer.
--- NOTE | 2018-11-02 19:05 | NUR ---
RN MS OPENING NOTES RECEIVED PATIENT IN BED, AWAKE ALERT AND ORIENTED X2, ABLE TO MAKE SIMPLE NEEDS KNOWN, RESPIRATIONS EVEN AND UNLABORED WITH EQUAL RISE AND FALL OF CHEST, NO SOB, DENIES ANY PAIN OR DISCOMFORT AT THIS TIME, IV SITE TO RIGHT AC#20G INTACT AND PATENT , IVF RUNNING ORDERED, ORIENTED TO STAFF AND CALL LIGHT AND KEPT WITHIN REACH,SAFETY PRECAUTIONS IN PLACE, LOW BED AND LOCKED WILL CONTINUE TO MONITOR AND ATTEND TO NEEDS REMAINS COMFORTABLE AT THIS TIME.
[2018-11-02 20:00] VITALS: BP 103/62
[2018-11-02] MEDS: MONTELUKAST SODIUM (10MG) 10 MG TABLET PO SCH (21:07)
[2018-11-03 07:06] LABS: BASOPHILS # (AUTO) 0.1 /CMM (0.0-0.2); BASOPHILS % (AUTO) 1.7 % (0.0-2.0); EOSINOPHILS % (AUTO) 16.3 % (0.0-6.0); HEMATOCRIT 32 % (33-45); HEMOGLOBIN 10.4 g/dL (11.5-14.8); LYMPHOCYTES # (AUTO) 2.2 /CMM (0.8-4.8); LYMPHOCYTES % (AUTO) 35.9 % (20.0-44.0); MEAN CORPUSCULAR HGB CONC 33 g/dl (31.0-36.0); MEAN CORPUSCULAR VOLUME 92 fL (82-100); MONOCYTES # (AUTO) 0.4 /CMM (0.1-1.30); MONOCYTES % (AUTO) 6.7 % (2.0-12.0); NEUTROPHILS # (AUTO) 2.4 /CMM (1.8-8.9); NEUTROPHILS % (AUTO) 39.4 % (43.0-81.0); PLATELET COUNT (AUTO) 300 /CMM (150-450); RED BLOOD CELL COUNT(AUTO) 3.43 MIL/uL (4.0-5.2); WHITE BLOOD COUNT (AUTO) 6.1 K/uL (4.3-11.0)
--- NOTE | 2018-11-03 07:10 | NUR ---
RN MS OPENING NOTES PATIENT IN BED, AWAKE ALERT AND ORIENTED X2, ABLE TO MAKE SIMPLE NEEDS KNOWN, RESPIRATIONS EVEN AND UNLABORED WITH EQUAL RISE AND FALL OF CHEST, NO SOB, , IV SITE TO RIGHT AC#20G AND LEFT AC #18 G INTACT AND PATENT, NPO SINCE MIDNIGHT FOR PROCEDURE , IVF RUNNING ORDERED, CALL LIGHT KEPT WITHIN REACH,SAFETY PRECAUTIONS IN PLACE, LOW BED AND LOCKED WILL CONTINUE TO MONITOR AND ATTEND TO NEEDS REMAINS COMFORTABLE AT THIS TIME AND ENDORSE TO NEXT SHIFT, PATIENT COMPLAINT OF HEADACHE OFFERED PAIN MEDICATION TYLENOL STATES " ILL JUST WAIT IT OUT."
--- NOTE | 2018-11-03 07:20 | NUR ---
RN OPENING NOTES PT AWAKE AND RESTING IN BED. NO COMPLAINTS OF SOB OR DISTRESS AT THIS TIME. PT HAS A LEFT AC #18 INTACT AND PATENT, PT ALSO HAS A RIGHT AC #20 INTACT AND RUNNING NS @60ML/HR. PT SCHEDULED FOR CTCA @0900. SAFETY PRECAUTIONS IN PLACE, BED IN LOWEST LOCKED POSITION, X2 SIDE RAILS UP AND CALL LIGHT WITHIN REACH. WILL CONTINUE TO MONITOR.
[2018-11-03] MEDS: LEVOTHYROXINE SODIUM 25 MCG TABLET PO SCH (07:30)
[2018-11-03 07:34] LABS: ALBUMIN 3.1 g/dL (3.4-5.0); BILIRUBIN,TOTAL 0.3 mg/dL (0.2-1.0); CALCIUM, SERUM 8.7 mg/dL (8.5-10.1); CREATININE 1.5 mg/dL (0.6-1.3); PHOSPHORUS 4.2 mg/dL (2.5-4.9); POTASSIUM 3.9 mmol/L (3.5-5.1); TOTAL PROTEIN, SERUM 6.3 g/dL (6.4-8.2)
[2018-11-03 08:00] VITALS: BP 103/63
[2018-11-03] MEDS: CARVEDILOL 6.25 MG TABLET PO SCH (09:00)
[2018-11-03] MEDS: ASPIRIN 81 MG TAB.CHEW PO SCH (09:00)
[2018-11-03] MEDS: TOPIRAMATE 25 MG TABLET PO SCH ×2 (09:00→17:13)
[2018-11-03] MEDS: GABAPENTIN 100 MG CAPSULE PO SCH ×2 (09:00→17:04)
[2018-11-03] MEDS: ATORVASTATIN 10 MG TABLET PEG SCH (09:00)
[2018-11-03] MEDS: LamoTRIgine 100 MG TABLET PO SCH ×2 (09:00→17:04)
[2018-11-03] MEDS: FLUTICASONE/VILANTEROL 1 EACH BLST.W.DEV IH SCH (09:51)
[2018-11-03] MEDS ORDERED: METOPROLOL TARTRATE INJ 5 MG/5 ML AMPUL ONE ×4 (11:04→12:34)
[2018-11-03] MEDS ORDERED: IV NS 0.9% 250 ML IV ONE (11:19)
[2018-11-03] MEDS ORDERED: IOHEXOL-350 100 ML VIAL IV ONE ×2 (11:19→12:20)
[2018-11-03] MEDS ORDERED: CT SWABBABLE VALVE TRANS SET 1 EA INFUS.SET MC ONE (11:19)
[2018-11-03] MEDS ORDERED: NITROGLYCERIN 0.4 MG/TAB BOTTLE ONE (11:39)
[2018-11-03] MEDS ORDERED: DOCU-141 PO (13:42)
[2018-11-03] MEDS ORDERED: CARV6.252 PO (13:42)
[2018-11-03 16:00] VITALS: BP 130/82
--- NOTE | 2018-11-03 16:56 | NUR ---
MS RN NOTES TRANSPORTATION ARRANGED WITH [facility], SPOKE WITH [facility]HMA WITH TRIP # [id number] [place] [id number] [facility], [place], [address]
[2018-11-03] MEDS: HYDROCODONE/APAP 5/325MG 1 EACH TABLET PO PRN (17:04)
--- NOTE | 2018-11-03 18:18 | NUR ---
RN CLOSING NOTES
--- NOTE | 2018-11-03 18:51 | NUR ---
RN CLOSING NOTES PT AWAKE AND RESTING IN BED. ALL PATIENT NEEDS MET DURING THE DAY. HAS A RIGHT AC #20 INTACT AND PATENT. PT SCHEDULED FOR DISCHARGE AT 2029. SAFETY PRECAUTIONS IN PLACE, BED IN LOWEST LOCKED POSITION, X2 SIDE RAILS UP AND CALL LIGHT WITHIN REACH. WILL ENDORSE TO DAY SHIFT NURSE FOR CONTINUITY OF CARE.
== END 2018-11-03 19:30 | DRG 205 ==
LOC: ER 16:56 → TELE 20:15 → MED 11-02 08:54
PROVIDERS: ADMIT Registered Nurse; ATTEND Registered Nurse
DX: M94.0 Chondrocostal junction syndrome [Tietze] (principal); N17.0 Acute kidney failure with tubular necrosis; I25.10 Atherosclerotic heart disease of native coronary artery without angina pectoris; I12.9 Hypertensive chronic kidney disease with stage 1 through stage 4 chronic kidney disease, or unspecified chronic kidney disease; N18.9 Chronic kidney disease, unspecified; B02.9 Zoster without complications; J45.909 Unspecified asthma, uncomplicated; E78.5 Hyperlipidemia, unspecified; E66.01 Morbid (severe) obesity due to excess calories; Z68.37 Body mass index [BMI] 37.0-37.9, adult; D64.9 Anemia, unspecified; Z79.51 Long term (current) use of inhaled steroids; Z79.82 Long term (current) use of aspirin
CPT/HCPCS: 36415; 71045-TC; 75574; 80048-TC; 80053-TC; 80061-TC; 80076-TC; 81000-TC; 82570-TC; 83735-TC; 84100-TC; 84155-TC; 84300-TC; 84443-TC; 84484-TC; 85025-TC; 85730-TC; 87081-TC; G0378; J3490; J7030; J7040; J7050; Q9967

== ENCOUNTER 2018-11-18 21:03 | Emergency (ER) | payer MEDICARE, OTHER ==
[~2018-11-18] VITALS: Ht 162.6 cm; Wt 93.0 kg
[~2018-11-18 21:03] MED LIST changes: +ATOR10TA PEG; +CARV6.252 PO; +DOCU-141 PO; +LISI10TA5 PO; +MONT10TA22 PO
--- NOTE | 2018-11-18 21:09 | NUR ---
PT BIBPA FROM ASSISTED FOR NAUSEA, ABD BLOATING, DIARRHEA, WEAK X2 DAYS, PT AAOX4, PT ON MONITOR, VSS, NAD NOTED, PENDING ER PROVIDER ASHLEIGHAL
[2018-11-18 22:05] LABS: BASOPHILS # (AUTO) 0.1 /CMM (0.0-0.2); BASOPHILS % (AUTO) 1.1 % (0.0-2.0); EOSINOPHILS % (AUTO) 14.3 % (0.0-6.0); HEMATOCRIT 31 % (33-45); LYMPHOCYTES # (AUTO) 1.8 /CMM (0.8-4.8); LYMPHOCYTES % (AUTO) 26.7 % (20.0-44.0); MEAN CORPUSCULAR HGB CONC 33 g/dl (31.0-36.0); MEAN CORPUSCULAR VOLUME 92 fL (82-100); MONOCYTES # (AUTO) 0.5 /CMM (0.1-1.30); MONOCYTES % (AUTO) 7.2 % (2.0-12.0); NEUTROPHILS # (AUTO) 3.4 /CMM (1.8-8.9); NEUTROPHILS % (AUTO) 50.7 % (43.0-81.0); PLATELET COUNT (AUTO) 304 /CMM (150-450); RED BLOOD CELL COUNT(AUTO) 3.34 MIL/uL (4.0-5.2); WHITE BLOOD COUNT (AUTO) 6.8 K/uL (4.3-11.0)
[2018-11-18 22:17] LABS: CALCIUM, SERUM 8.9 mg/dL (8.5-10.1); CREATININE 1.7 mg/dL (0.6-1.3); POTASSIUM 4.4 mmol/L (3.5-5.1)
[2018-11-18 22:19] LABS: APPEARANCE,URINE Slightly Cloudy (CLEAR); BILIRUBIN,URINE Negative (NEGATIVE); BLOOD, URINE Trace-lysed Ery/uL (NEGATIVE); COLOR,URINE Yellow (YELLOW); KETONES,URINE Negative (NEGATIVE); LEUKOCYTE ESTERASE ,URINE Negative (NEGATIVE); NITRITE, URINE Negative (NEGATIVE); PH,URINE 5.5 (5.0-8.0); PROTEIN,URINE Negative (NEGATIVE); UGLUCOSE Negative (NEGATIVE); UROBILINOGEN,URINE 0.2 EU/dL (0.2)
[2018-11-18 22:23] LABS: ALBUMIN 3.3 g/dL (3.4-5.0); BILIRUBIN,DIRECT 0.1 mg/dL (0.0-0.2); BILIRUBIN,TOTAL 0.2 mg/dL (0.2-1.0); TOTAL PROTEIN, SERUM 6.8 g/dL (6.4-8.2)
[2018-11-18 22:27] LABS: BACTERIA,URINE Few /HPF (None Seen); SQUAMOUS EPITHELIAL CELL,UR Few /HPF (None Seen); WBC,URINE 0-2 /HPF (0-3)
[2018-11-18] MEDS ORDERED: IV NS 0.9% 1,000 ML BAG IV ONE (23:00)
--- NOTE | 2018-11-18 23:00 | NUR ---
NEW ORDERS FOR IV FLUIDS, IV STARTED RAC20.
[2018-11-18] MEDS ORDERED: LOPERAMIDE HCL (2 MG CAP) 2 MG CAPSULE PO ONE (23:37)
[2018-11-19] MEDS ORDERED: LOPERAMIDE HCL (2 MG CAP) 2 MG CAPSULE PO ONE
--- NOTE | 2018-11-19 00:20 | NUR ---
CALLED [facility] FOR S TRANSPORT TO [facility]. TRIP#: [id number]
--- NOTE | 2018-11-19 01:47 | NUR ---
lela at bedside for transport to [facility].
[2018-11-19 01:48] VITALS: BP 105/63
== END 2018-11-19 01:49 ==
LOC: ER 21:04
DX: R19.7 Diarrhea, unspecified (principal); I10 Essential (primary) hypertension; Z98.890 Other specified postprocedural states; Z88.0 Allergy status to penicillin; Z88.6 Allergy status to analgesic agent; Z79.82 Long term (current) use of aspirin; Z91.018 Allergy to other foods; Z88.8 Allergy status to other drugs, medicaments and biological substances
CPT/HCPCS: 36415; 71045-TC; 80048-TC; 80076-TC; 81000-TC; 85025-TC; J7030

== ENCOUNTER 2019-01-15 11:41 | Emergency (ER) | payer MEDICARE, OTHER ==
[~2019-01-15] VITALS: Ht 162.6 cm; Wt 96.2 kg
[2019-01-15 12:06] LABS: BASOPHILS # (AUTO) 0.1 /CMM (0.0-0.2); BASOPHILS % (AUTO) 1.7 % (0.0-2.0); EOSINOPHILS % (AUTO) 4.8 % (0.0-6.0); HEMATOCRIT 31 % (33-45); HEMOGLOBIN 10.3 g/dL (11.5-14.8); LYMPHOCYTES # (AUTO) 1.2 /CMM (0.8-4.8); LYMPHOCYTES % (AUTO) 22.6 % (20.0-44.0); MEAN CORPUSCULAR HGB CONC 33 g/dl (31.0-36.0); MEAN CORPUSCULAR VOLUME 89 fL (82-100); MONOCYTES # (AUTO) 0.4 /CMM (0.1-1.30); NEUTROPHILS # (AUTO) 3.5 /CMM (1.8-8.9); NEUTROPHILS % (AUTO) 63.9 % (43.0-81.0); PLATELET COUNT (AUTO) 372 /CMM (150-450); RED BLOOD CELL COUNT(AUTO) 3.53 MIL/uL (4.0-5.2); WHITE BLOOD COUNT (AUTO) 5.5 K/uL (4.3-11.0)
[2019-01-15] MEDS ORDERED: ASPIRIN 325 MG TABLET ONE (12:13)
[2019-01-15] MEDS: ASPIRIN 325 MG TABLET PO ONE (12:13)
[2019-01-15 12:14] LABS: CALCIUM, SERUM 8.9 mg/dL (8.5-10.1); CARBON DIOXIDE 22 mmol/L (21-32); CHLORIDE 107 mmol/L (98-107); CREATININE 1.7 mg/dL (0.6-1.3); GLUCOSE 103 mg/dL (74-106); POTASSIUM 4.7 mmol/L (3.5-5.1); SODIUM SERUM 139 mmol/L (136-145); UREA NITROGEN, BLOOD 21 mg/dL (7-18)
--- NOTE | 2019-01-15 12:30 | NUR ---
pt presented from assisted living for chest pain beginning around 1130. pt given 325 Mg asaparing 18g piv placed labs drawn ekg done on school lunch monitor currently speaking for cell phone.
--- NOTE | 2019-01-15 12:49 | NUR ---
PAGED DR RASHEED.
--- NOTE | 2019-01-15 13:20 | NUR ---
pt discharged to home calling transportation for ride
--- NOTE | 2019-01-15 13:24 | NUR ---
CALLED [facility] FOR BLS TRANSPORT, ETA 90 MINS (1500), TRIP [id number]
--- NOTE | 2019-01-15 15:02 | NUR ---
[facility] HERE TO TRANSPORT PT BACK TO [facility]
[2019-01-15 15:04] VITALS: BP 114/92
== END 2019-01-15 15:05 ==
LOC: ER 11:41
DX: R07.89 Other chest pain (principal); F20.9 Schizophrenia, unspecified; I10 Essential (primary) hypertension; Z98.890 Other specified postprocedural states; Z88.0 Allergy status to penicillin; Z88.6 Allergy status to analgesic agent; Z79.82 Long term (current) use of aspirin; Z91.018 Allergy to other foods; Z88.8 Allergy status to other drugs, medicaments and biological substances
CPT/HCPCS: 36415; 71045-TC; 80048-TC; 84484-TC; 85025-TC

== ENCOUNTER 2019-04-18 18:28 | Emergency (ER) | payer MEDICARE, OTHER ==
[~2019-04-18] VITALS: Ht 162.6 cm; Wt 88.5 kg
[~2019-04-18 18:28] MED LIST changes: +ARIP5TAB10 PO; -ATOR10TA PEG; +ATOR10TA PO; +BISA5TAB10 PO; +FLUO20TA28 PO; +FLUT1BLS IH; -FLUT1DIS IH; +ZOLP5TAB8 PO
--- NOTE | 2019-04-18 18:50 | NUR ---
CARLI FROM [facility] C/O R HIP AND LEG PAIN. PATIENT A/OX3, BREATHING EVEN AND UNLABORED, NO SOB NOTED, NEEDS ATTENDED, KEPT COMFORTABLE. NAD. WILL MONITOR.
[2019-04-18] MEDS ORDERED: oxyCODONE/APAP (5/325 MG) 1 UDTAB TABLET PO ONE (19:00)
[2019-04-18] MEDS ORDERED: oxyCODONE/APAP (5/325 MG) 1 UDTAB TABLET ONE (19:08)
--- NOTE | 2019-04-18 19:13 | NUR ---
ENDORSED TO BEBE RICKETTS FOR KANIKA.
--- NOTE | 2019-04-18 20:50 | NUR ---
PT RESTING IN BED, NAD NOTED. WILL CONTINUE TO MONITOR.
--- NOTE | 2019-04-18 20:55 | NUR ---
[facility] ETA [phone] TRIP#[id number]
[2019-04-18] MEDS ORDERED: LIDOCAINE 1%-EPI 1:100,000 20 ML VIAL ONE (21:28)
--- NOTE | 2019-04-18 22:29 | NUR ---
DPatient discharged to home in stable condition. Written and verbal after care instructions given. Patient verbalizes understanding of instruction.
--- NOTE | 2019-04-18 22:35 | NUR ---
TEDDY NOTIFIED OF PT RETURN AT [facility].
[2019-04-18 22:36] VITALS: BP 126/81
== END 2019-04-18 22:36 ==
LOC: ER 18:34
DX: S73.191A Other sprain of right hip, initial encounter (principal); I10 Essential (primary) hypertension; Z98.890 Other specified postprocedural states; Z88.0 Allergy status to penicillin; Z88.8 Allergy status to other drugs, medicaments and biological substances; Z91.010 Allergy to peanuts; Z91.018 Allergy to other foods; Z79.899 Other long term (current) drug therapy; Z79.82 Long term (current) use of aspirin; X58.XXXA Exposure to other specified factors, initial encounter; Y93.89 Activity, other specified; Y92.89 Other specified places as the place of occurrence of the external cause; Y99.8 Other external cause status
CPT/HCPCS: 73502; 99283; J3490

== ENCOUNTER 2019-06-24 12:13 | Emergency (ER) | payer OTHER ==
[~2019-06-24] VITALS: Ht 162.6 cm; Wt 95.7 kg
--- NOTE | 2019-06-24 12:15 | NUR ---
BIBR60 FROM [facility] C/O RIGHT HIP AND SHOULDER PAIN S/P FALL, -KO -TRAUMA, TO ER BED 9, HOOKED TO MONITOR, CHANGED TO GOWN, AWAITING MD ALVAREZ.
--- NOTE | 2019-06-24 12:30 | NUR ---
LIDYA HORN AT BEDSIDE
[2019-06-24] MEDS ORDERED: IBUP-1953 PO (12:38)
[2019-06-24] MEDS ORDERED: FERR325T23 PO (12:38)
[2019-06-24] MEDS ORDERED: MORPHINE SULFATE INJ 4 MG/ML DISP.SYRIN ONE (12:47)
[2019-06-24] MEDS ORDERED: ONDANSETRON HCL/PF 4 MG/2 ML VIAL ONE (12:47)
--- NOTE | 2019-06-24 12:56 | NUR ---
RADIATOR MECHANIC AT BEDSIDE
[2019-06-24 12:57] LABS: BASOPHILS # (AUTO) 0.1 /CMM (0.0-0.2); BASOPHILS % (AUTO) 1.2 % (0.0-2.0); EOSINOPHILS % (AUTO) 7.8 % (0.0-6.0); HEMATOCRIT 39 % (33-45); HEMOGLOBIN 12.8 g/dL (11.5-14.8); LYMPHOCYTES # (AUTO) 1.6 /CMM (0.8-4.8); LYMPHOCYTES % (AUTO) 22.7 % (20.0-44.0); MEAN CORPUSCULAR HGB CONC 33 g/dl (31.0-36.0); MEAN CORPUSCULAR VOLUME 92 fL (82-100); MONOCYTES # (AUTO) 0.5 /CMM (0.1-1.30); MONOCYTES % (AUTO) 6.4 % (2.0-12.0); NEUTROPHILS # (AUTO) 4.5 /CMM (1.8-8.9); NEUTROPHILS % (AUTO) 61.9 % (43.0-81.0); PLATELET COUNT (AUTO) 277 /CMM (150-450); RED BLOOD CELL COUNT(AUTO) 4.21 MIL/uL (4.0-5.2); WHITE BLOOD COUNT (AUTO) 7.2 K/uL (4.3-11.0)
[2019-06-24] MEDS ORDERED: MORPHINE SULFATE INJ 2 MG/ML DISP.SYRIN IV ONE (13:00)
[2019-06-24] MEDS ORDERED: IV NS 0.9% 500 ML BAG IV ONE (13:00)
[2019-06-24] MEDS ORDERED: ONDANSETRON HCL/PF 4 MG/2 ML VIAL IVP ONE (13:00)
[2019-06-24 13:06] LABS: CALCIUM, SERUM 9.3 mg/dL (8.5-10.1); CREATININE 1.4 mg/dL (0.6-1.3); POTASSIUM 5.2 mmol/L (3.5-5.1)
[2019-06-24 13:11] LABS: ALBUMIN 3.5 g/dL (3.4-5.0); BILIRUBIN,DIRECT 0.1 mg/dL (0.0-0.2); BILIRUBIN,TOTAL 0.2 mg/dL (0.2-1.0); TOTAL PROTEIN, SERUM 7.3 g/dL (6.4-8.2)
[2019-06-24] MEDS ORDERED: SODIUM POLYSTYRENE SULFONATE 15 G/60 ML BOTTLE RC ONE (14:00)
[2019-06-24] MEDS ORDERED: SODIUM POLYSTYRENE SULFONATE 15 G/60 ML BOTTLE ONE (14:03)
--- NOTE | 2019-06-24 15:58 | NUR ---
PATIENT WAS ABLE TO AMBULATE WITH MINIMAL ASSISTANCE
--- NOTE | 2019-06-24 16:50 | NUR ---
SPOKE TO [place] DISTRICT ADMINISTRATIVE ASSISTANT OF [facility] [phone], SHE WILL INFORM DR. GONZALEZ FOOD AND BEVERAGE LEAD OF PATIENT COMING BACK TO FACILITY.
--- NOTE | 2019-06-24 16:53 | NUR ---
[facility] GARCIA 1929 TRIP #[id number]
--- NOTE | 2019-06-24 18:53 | NUR ---
IV removed. Catheter intact and site benign. Pressure and 4x4 applied to site. No bleeding noted. Patient picked up by [facility] unit 110 in stable condition. Patient will be brought back to [facility] the [facility]. Written and verbal after care instructions given. Patient verbalizes understanding of instruction.
[2019-06-24 18:56] VITALS: BP 136/76
== END 2019-06-24 18:57 ==
LOC: ER 12:15
DX: M16.11 Unilateral primary osteoarthritis, right hip (principal); M19.011 Primary osteoarthritis, right shoulder; M47.896 Other spondylosis, lumbar region; N28.9 Disorder of kidney and ureter, unspecified; R53.1 Weakness; E87.5 Hyperkalemia; E66.9 Obesity, unspecified; Z68.36 Body mass index [BMI] 36.0-36.9, adult; W18.39XA Other fall on same level, initial encounter; Y93.89 Activity, other specified; Y92.89 Other specified places as the place of occurrence of the external cause; Y99.8 Other external cause status; I10 Essential (primary) hypertension; Z98.890 Other specified postprocedural states; Z88.0 Allergy status to penicillin; Z88.8 Allergy status to other drugs, medicaments and biological substances; Z91.048 Other nonmedicinal substance allergy status; Z91.018 Allergy to other foods; Z91.010 Allergy to peanuts; Z79.899 Other long term (current) drug therapy; Z79.82 Long term (current) use of aspirin
CPT/HCPCS: 36415; 71045; 72131; 73030; 73502; 80048; 80076; 85025; 85730; 93005; 96374; 96375; 99284; J2270; J2405; J7040

== ENCOUNTER 2019-08-10 19:12 | Emergency (ER) | payer OTHER ==
[~2019-08-10] VITALS: Ht 162.6 cm; Wt 95.3 kg
[~2019-08-10 19:12] MED LIST changes: -BISA5TAB10 PO; -CYCL5TAB PO; -DOCU-141 PO; +FERR325T23 PO; +IBUP-1953 PO
--- NOTE | 2019-08-10 19:25 | NUR ---
PT AAOX4. BIBPA FROM [facility]. PT C/O HEADACHE RADIATING TO NECK AND BACK 07/10. ALSO LEFT SIDED CHEST PAIN. NON RADIATING 05/10 SHARP. PT PLACED ON MERGERS AND ACQUISITIONS ASSOCIATE AND PULSE OX. BREATHING EVEN AND UNLABORED. NO ACUTE DISTRESS NOTED. WILL CONTINUE TO MONITOR. AWAITING MD FOR EVAL.
[2019-08-10 19:54] LABS: BASOPHILS # (AUTO) 0.1 /CMM (0.0-0.2); BASOPHILS % (AUTO) 1.2 % (0.0-2.0); EOSINOPHILS % (AUTO) 7.3 % (0.0-6.0); HEMATOCRIT 38 % (33-45); HEMOGLOBIN 12.2 g/dL (11.5-14.8); LYMPHOCYTES # (AUTO) 1.9 /CMM (0.8-4.8); LYMPHOCYTES % (AUTO) 26.3 % (20.0-44.0); MEAN CORPUSCULAR HGB CONC 32 g/dl (31.0-36.0); MEAN CORPUSCULAR VOLUME 97 fL (82-100); MONOCYTES # (AUTO) 0.5 /CMM (0.1-1.30); MONOCYTES % (AUTO) 7.7 % (2.0-12.0); NEUTROPHILS % (AUTO) 57.5 % (43.0-81.0); PLATELET COUNT (AUTO) 283 /CMM (150-450); RED BLOOD CELL COUNT(AUTO) 3.92 MIL/uL (4.0-5.2)
[2019-08-10] MEDS ORDERED: HYDROCODONE/APAP 5/325MG 1 EACH TABLET ONE (19:59)
[2019-08-10] MEDS ORDERED: IV NS 0.9% 1,000 ML BAG IV ONE (20:00)
[2019-08-10] MEDS ORDERED: HYDROCODONE/APAP 5/325MG 1 EACH TABLET PO ONE ×2 (20:00)
--- NOTE | 2019-08-10 20:02 | NUR ---
PT BROUGHT TO CT.
[2019-08-10 20:06] LABS: ALCOHOL, BLOOD < 3 mg/dL (0-0); CARBON DIOXIDE 22 mmol/L (21-32); CHLORIDE 107 mmol/L (98-107); CREATININE 1.9 mg/dL (0.6-1.3); GLUCOSE 98 mg/dL (74-106); POTASSIUM 4.9 mmol/L (3.5-5.1); SODIUM SERUM 139 mmol/L (136-145); UREA NITROGEN, BLOOD 35 mg/dL (7-18)
--- NOTE | 2019-08-10 21:01 | NUR ---
Patient is resting comfortably in bed coloring. Easily aroused. VSS.
--- NOTE | 2019-08-10 21:36 | NUR ---
PER [facility] VALENCIA ETA IS 23:30 - 00:30. TRIP #: [id number]
--- NOTE | 2019-08-10 22:38 | NUR ---
Patient is resting comfortably in bed with eyes closed. Easily aroused. VSS.
--- NOTE | 2019-08-10 23:07 | NUR ---
[facility] AT BEDSIDE FOR TRANSPORT. REPORT GIVEN.
--- NOTE | 2019-08-10 23:11 | NUR ---
Patient discharged to home in stable condition. Written and verbal after care instructions given. Patient verbalizes understanding of instruction. IV removed. Catheter intact and site benign. Pressure and 4x4 applied to site. No bleeding noted.
[2019-08-10 23:12] VITALS: BP 112/63
== END 2019-08-10 23:18 | disposition home or self-care (01) ==
LOC: ER 19:13
DX: R51 Headache (principal); G25.2 Other specified forms of tremor; R79.0 Abnormal level of blood mineral; E86.0 Dehydration; I10 Essential (primary) hypertension; G40.909 Epilepsy, unspecified, not intractable, without status epilepticus; R40.4 Transient alteration of awareness; F20.9 Schizophrenia, unspecified; Z98.890 Other specified postprocedural states; Z79.899 Other long term (current) drug therapy; Z79.82 Long term (current) use of aspirin; Z88.0 Allergy status to penicillin; Z91.018 Allergy to other foods; Z88.8 Allergy status to other drugs, medicaments and biological substances; Z88.6 Allergy status to analgesic agent; Z91.010 Allergy to peanuts
CPT/HCPCS: 36415; 70450; 80048; 80307; 85025; 96360; 99284; J7030; G0480

== ENCOUNTER 2019-10-16 17:44 | Emergency (ER) | payer OTHER ==
[~2019-10-16] VITALS: Ht 162.6 cm; Wt 97.5 kg
[~2019-10-16 17:44] MED LIST changes: -LAMO100T PO; +LAMO100T17 PO
--- NOTE | 2019-10-16 18:05 | NUR ---
GABRIEL RA 60 from [facility] "Sharp chest pain left side to back started this pm 05/10 gave Asa 162/NTG pain 03/10". PT AAOX4, VSS. RR EVEN & UNLABORED. DENIES SOB, DIZZINESS, N/V, WEAKNESS @ THIS TIME. PT ONLY C/O WILKINSON. PT SEEN & EVAL'D BY DR. SANTANA. PLACED ON BRIDGE DESIGN ENGINEER, SR. WILL CONT TO MONITOR.
[2019-10-16] MEDS ORDERED: DIPH1TAB PO (18:13)
[2019-10-16] MEDS ORDERED: TIZA4TAB5 PO (18:13)
[2019-10-16] MEDS ORDERED: DOCU-141 PO (18:13)
[2019-10-16] MEDS ORDERED: IBUP-1953 PO (18:14)
[2019-10-16 18:18] LABS: BASOPHILS # (AUTO) 0.1 /CMM (0.0-0.2); BASOPHILS % (AUTO) 1.2 % (0.0-2.0); HEMATOCRIT 37 % (33-45); HEMOGLOBIN 12.1 g/dL (11.5-14.8); LYMPHOCYTES # (AUTO) 1.8 /CMM (0.8-4.8); LYMPHOCYTES % (AUTO) 24.1 % (20.0-44.0); MEAN CORPUSCULAR HGB CONC 33 g/dl (31.0-36.0); MEAN CORPUSCULAR VOLUME 99 fL (82-100); MONOCYTES # (AUTO) 0.7 /CMM (0.1-1.30); MONOCYTES % (AUTO) 8.9 % (2.0-12.0); NEUTROPHILS # (AUTO) 4.5 /CMM (1.8-8.9); NEUTROPHILS % (AUTO) 58.8 % (43.0-81.0); PLATELET COUNT (AUTO) 297 /CMM (150-450); RED BLOOD CELL COUNT(AUTO) 3.75 MIL/uL (4.0-5.2); WHITE BLOOD COUNT (AUTO) 7.7 K/uL (4.3-11.0)
[2019-10-16 18:28] LABS: CALCIUM, SERUM 8.9 mg/dL (8.5-10.1); CARBON DIOXIDE 27 mmol/L (21-32); CHLORIDE 110 mmol/L (98-107); CREATININE 1.5 mg/dL (0.6-1.3); GLUCOSE 92 mg/dL (74-106); POTASSIUM 4.4 mmol/L (3.5-5.1); SODIUM SERUM 145 mmol/L (136-145); UREA NITROGEN, BLOOD 26 mg/dL (7-18)
--- NOTE | 2019-10-16 19:05 | NUR ---
REPORT REC'D FROM JAMARCUS KOTHARI FOR KANIKA.
--- NOTE | 2019-10-16 19:43 | NUR ---
PT IS C/O ABD PAIN INCREASING.
--- NOTE | 2019-10-16 20:23 | NUR ---
CALLING [facility] TO TRANSPORT PT BACK TO [facility] @[place]
--- NOTE | 2019-10-16 20:25 | NUR ---
PER PT'S PAPERWORK, PT IS NON AMBULATORY.
--- NOTE | 2019-10-16 20:27 | NUR ---
TRIP # [id number] ETA 30MINS
[2019-10-16] MEDS ORDERED: IBUPROFEN 600 MG TABLET PO ONE ×2 (20:30)
--- NOTE | 2019-10-16 21:09 | NUR ---
REPORT GIVEN TO JAMARCUS BLANTON AT [facility]. REPORT GIVEN TO MARYELLEN CORTEZ FOR [facility]. Patient discharged to home in stable condition. Written and verbal after care instructions given. Patient verbalizes understanding of instruction.
[2019-10-16 21:10] VITALS: BP 135/54
--- NOTE | 2019-10-16 21:11 | NUR ---
IV removed. Catheter intact and site benign. Pressure and 4x4 applied to site. No bleeding noted.
== END 2019-10-16 21:11 | disposition home or self-care (01) ==
LOC: ER 17:44
DX: R07.89 Other chest pain (principal); I10 Essential (primary) hypertension; E78.5 Hyperlipidemia, unspecified; G40.909 Epilepsy, unspecified, not intractable, without status epilepticus; J45.909 Unspecified asthma, uncomplicated; F32.9 Major depressive disorder, single episode, unspecified; Z98.890 Other specified postprocedural states; Z88.0 Allergy status to penicillin; Z91.010 Allergy to peanuts; Z91.018 Allergy to other foods; Z91.048 Other nonmedicinal substance allergy status; Z88.8 Allergy status to other drugs, medicaments and biological substances; Z79.899 Other long term (current) drug therapy; Z79.82 Long term (current) use of aspirin
CPT/HCPCS: 36415; 71045-TC; 80048-TC; 84484-TC; 85025-TC

== ENCOUNTER 2019-12-17 16:45 | Emergency (ER) | payer MEDICARE, OTHER ==
[~2019-12-17] VITALS: Ht 162.6 cm; Wt 95.3 kg
[~2019-12-17 16:45] MED LIST changes: -CARV6.252 PO; +DIPH1TAB PO; +DOCU-141 PO; +TIZA4TAB5 PO
--- NOTE | 2019-12-17 16:51 | NUR ---
[facility], FOR FEVER. PT C/O BODYACHES AND SORETHROAT X 3 DAYS , TO ER BED 8, HOOKED TO MONITOR, PROVIDED W WARM BLANKET. AWAITING MD ALVAREZ
--- NOTE | 2019-12-17 17:15 | NUR ---
SEEN AND EXAMINED BY DR BAZZI
--- NOTE | 2019-12-17 17:25 | NUR ---
CALLED TRANSPORT [facility] [phone] ETA 1800
[2019-12-17] MEDS ORDERED: ACETAMINOPHEN ES 500 MG TABLET PO ONE (18:00)
[2019-12-17] MEDS ORDERED: ACETAMINOPHEN ES 500 MG TABLET ONE (18:05)
--- NOTE | 2019-12-17 18:12 | NUR ---
REPORT GIVEN TO [facility]
--- NOTE | 2019-12-17 18:26 | NUR ---
Patient discharged to [facility] [address] in stable condition. Written and verbal after care instructions given. Patient verbalizes understanding of instruction. Patient will be brought back to [facility].
[2019-12-17 18:27] VITALS: BP 129/76
== END 2019-12-17 18:28 ==
LOC: ER 16:47
DX: R07.9 Chest pain, unspecified (principal); R50.9 Fever, unspecified; E78.5 Hyperlipidemia, unspecified; G40.909 Epilepsy, unspecified, not intractable, without status epilepticus; Z96.82 Presence of neurostimulator; J45.909 Unspecified asthma, uncomplicated; Z91.010 Allergy to peanuts; Z88.0 Allergy status to penicillin; Z88.8 Allergy status to other drugs, medicaments and biological substances; Z91.018 Allergy to other foods
CPT/HCPCS: 71045-TC

== ENCOUNTER 2020-07-18 02:27 | Inpatient (IN) | payer MEDICARE, OTHER ==
[~2020-07-18] VITALS: Ht 162.6 cm; Wt 99.8 kg
[~2020-07-18 02:27] MED LIST changes: -ASPI-1152 PO; +ASPI-1420 PO
--- NOTE | 2020-07-18 02:30 | NUR ---
PT BIBA FROM HOME C/O FEVER N/V/D. PT AAOX3,VSS, RESPIRATIONS EVEN AND UNLABORED ON RA W/ NAD NOTED. PT CONNECTED TO THE SPANISH LINGUIST AND POX. PT PLACED ON SUPPLEMENTAL O2 2L VIA N/C SATTING 98%.
--- NOTE | 2020-07-18 02:35 | NUR ---
BLOOD COLLECTED AND SENT TO LAB
[2020-07-18] MEDS ORDERED: ONDANSETRON HCL/PF 4 MG/2 ML VIAL ONE (02:50)
[2020-07-18] MEDS ORDERED: IV NS 0.9% 1,000 ML BAG IV ONE (03:00)
[2020-07-18] MEDS ORDERED: CIPROFLOXACIN IV RTU 400 MG in PREMIX 1 EA IV SCH ×2 (03:00→15:00)
[2020-07-18] MEDS ORDERED: FLAGYL/NS RTU 500 MG/100 ML PIGGYBACK IV ONE (03:00)
[2020-07-18] MEDS ORDERED: ONDANSETRON HCL/PF 4 MG/2 ML VIAL IVP ONE (03:00)
[2020-07-18] MEDS ORDERED: VANCOMYCIN 1 GM in IV D5W 250 ML IV ONE (03:00)
[2020-07-18] MEDS ORDERED: METRONIDAZOLE 500MG/ NS 100ML 100 ML IV ONE (03:05)
[2020-07-18] MEDS ORDERED: CIPROFLOXACIN IV RTU 200 ML IV ONE (03:05)
[2020-07-18] MEDS ORDERED: VANCOMYCIN 1 GM VIAL ONE (03:05)
[2020-07-18 03:20] LABS: BASOPHILS % (AUTO) 0.3 % (0.0-2.0); EOSINOPHILS % (AUTO) 1.6 % (0.0-6.0); HEMATOCRIT 37 % (33-45); HEMOGLOBIN 12.3 g/dL (11.5-14.8); LYMPHOCYTES # (AUTO) 0.7 /CMM (0.8-4.8); LYMPHOCYTES % (AUTO) 8.7 % (20.0-44.0); MEAN CORPUSCULAR HGB CONC 33 g/dl (31.0-36.0); MEAN CORPUSCULAR VOLUME 96 fL (82-100); MONOCYTES # (AUTO) 0.2 /CMM (0.1-1.30); MONOCYTES % (AUTO) 2.6 % (2.0-12.0); NEUTROPHILS # (AUTO) 7.2 /CMM (1.8-8.9); NEUTROPHILS % (AUTO) 86.8 % (43.0-81.0); PLATELET COUNT (AUTO) 251 /CMM (150-450); RED BLOOD CELL COUNT(AUTO) 3.88 MIL/uL (4.0-5.2); WHITE BLOOD COUNT (AUTO) 8.3 K/uL (4.3-11.0)
[2020-07-18 03:31] LABS: CREATININE 1.6 mg/dL (0.6-1.3); POTASSIUM 4.4 mmol/L (3.5-5.1)
[2020-07-18 03:55] LABS: ALANINE AMINOTRANSFERASE 18 U/L (12-78); ALBUMIN 3.6 g/dL (3.4-5.0); ALKALINE PHOSPHATASE 141 U/L (46-116); ASPARTATE AMINOTRANSFERASE 13 U/L (15-37); BILIRUBIN,DIRECT 0.1 mg/dL (0.0-0.2); BILIRUBIN,TOTAL 0.3 mg/dL (0.2-1.0); TOTAL PROTEIN, SERUM 8.1 g/dL (6.4-8.2)
--- NOTE | 2020-07-18 03:55 | NUR ---
LACTIC 2.6
--- NOTE | 2020-07-18 04:14 | NUR ---
PT TAKEN TO RADIOLOGY FOR CT
[2020-07-18] MEDS ORDERED: IOHEXOL-300 100 ML VIAL IV ONE (04:15)
--- NOTE | 2020-07-18 04:35 | NUR ---
COVID SWAB COLLECTED AND SENT TO LAB
[2020-07-18] MEDS ORDERED: IV NS 0.9% 1,000 ML IV STA ×2 (05:44)
--- NOTE | 2020-07-18 07:42 | NUR ---
URINE COLLECTED AND SENT TO LAB
[2020-07-18] MEDS ORDERED: MECL-159 PO (07:43)
[2020-07-18] MEDS ORDERED: ALBU18HF2 IH (07:43)
[2020-07-18] MEDS ORDERED: ACETAMINOPHEN 325 MG TABLET PO PRN (08:00)
[2020-07-18] MEDS ORDERED: ONDANSETRON HCL/PF 4 MG/2 ML VIAL IVP PRN (08:00)
[2020-07-18] MEDS ORDERED: Z GUARD REMEDY 2 OZ OINT TP PRN (08:00)
[2020-07-18] MEDS ORDERED: ZOLPIDEM TARTRATE 5 MG TABLET PO PRN (08:00)
[2020-07-18 08:12] LABS: APPEARANCE,URINE CLEAR (CLEAR); BILIRUBIN,URINE NEGATIVE (NEGATIVE); BLOOD, URINE NEGATIVE Ery/uL (NEGATIVE); COLOR,URINE YELLOW (YELLOW); KETONES,URINE NEGATIVE (NEGATIVE); LEUKOCYTE ESTERASE ,URINE TRACE (NEGATIVE); NITRITE, URINE NEGATIVE (NEGATIVE); PROTEIN,URINE NEGATIVE (NEGATIVE); UGLUCOSE NEGATIVE (NEGATIVE); UROBILINOGEN,URINE 0.2 EU/dL (0.2)
--- NOTE | 2020-07-18 08:29 | NUR ---
REPORT GIVEN TO JAMEE RICKETTS OF TELE UNIT
[2020-07-18 09:30] VITALS: BP 145/72
--- NOTE | 2020-07-18 09:30 | NUR ---
RN ADMITTING NOTE PATIENT ARRIVED BY GURNEY AND AMBULATORY WITH ASSIST TO BED. PATIENT IN BED RESTING COMFORTABLY. PATIENT IN NO ACUTE DISTRESS. NO SOB NOTED. PATIENT BREATHING IS EVEN AND UNLABORED. PATIENT ON PASTRY CHEF READING SINUS TACHYCARDIA HR 106. PATIENT BED ALARM IS ON. SAFETY PRECAUTIONS IN PLACE. SEIZURE PRECAUTIONS IN PLACE. PATIENT BED IS LOCKED AND IN LOWEST POSITION. CALL LIGHT WITHIN REACH. ORDERS PLACED. WILL FOLLOW UP. DR. SPEARS MADE AWARE. WILL CONTINUE TO MONITOR.
[2020-07-18 09:46] LABS: BACTERIA,URINE Few /HPF (None Seen); RBC,URINE 0-2 /HPF (0-2); SQUAMOUS EPITHELIAL CELL,UR Few /HPF (None Seen); WBC,URINE 0-2 /HPF (0-3)
[2020-07-18] MEDS: IV NS 0.9% 1,000 ML IV PRN (10:01)
--- NOTE | 2020-07-18 10:15 | NUR ---
ANIMAL TREATMENT INVESTIGATOR NOTE DR. SPEARS SEEN AND EVALUATED PATIENT. PER MD TO KEEP PATIENT ON TELE MONITORING AND ADMIT TO TELE. INFORMED DR. SPEARS TO COMPLETE MED RECON. MD IS AWARE AND STATES HE WILL TAKE A LOOK AND COMPLETE IT.
[2020-07-18] MEDS: ENOXAPARIN SODIUM 40 MG/0.4 ML DISP.SYRIN SQ SCH (10:16)
[2020-07-18] MEDS: METRONIDAZOLE 500MG/ NS 100ML 500 MG in PREMIX 1 EA IV SCH ×2 (11:49→18:03)
[2020-07-18 12:00] VITALS: BP 141/73
[2020-07-18 16:00] VITALS: BP 156/74
[2020-07-18] MEDS: CIPROFLOXACIN IV RTU 400 MG in PREMIX 1 EA IV SCH (16:14)
--- NOTE | 2020-07-18 16:29 | NUR ---
ASSEMBLER BICYCLE NOTE PATIENT TEMPERATURE 99F. IMPLEMENTED COOLING MEASURES.
[2020-07-18] MEDS ORDERED: IBUPROFEN 400 MG TABLET PO PRN (16:30)
[2020-07-18] MEDS ORDERED: ALBUTEROL SULFATE INH 18 GM HFA.AER.AD IH PRN (16:30)
[2020-07-18] MEDS ORDERED: MECLIZINE HCL 25 MG TABLET PO PRN (16:30)
--- NOTE | 2020-07-18 18:42 | NUR ---
RN CLOSING NOTE PATIENT IN BED RESTING COMFORTABLY. PATIENT IN NO ACUTE DISTRESS. NO SOB NOTED. PATIENT BREATHING IS EVEN AND UNLABORED. PATIENT ON DIAGNOSTICS SALES DEVELOPER READING SINUS RHYTHM HR 88. PATIENT BED ALARM IS ON. SAFETY PRECAUTIONS IN PLACE. SEIZURE PRECAUTIONS IN PLACE. PATIENT KEPT CLEAN, DRY, AND COMFORTABLE THROUGHOUT MY SHIFT. NEEDS AND CONCERNS ADDRESSED. PATIENT BED IS LOCKED AND IN LOWEST POSITION. CALL LIGHT WITHIN REACH. WILL ENDORSE CARE TO PM SHIFT FOR KANIKA.
[2020-07-18] MEDS: HYDROCODONE/APAP 5/325MG TABLET PO PRN (18:48)
--- NOTE | 2020-07-18 18:56 | NUR ---
Spoke with patient, she is alert and pleasant. States she resides at [facility] [phone].She uses a walker with ambulation and min assist with adl's. She is currently on homehealth services but she dos not remember the name of the company.Lorrie Zuñiga is her casework manager at the [facility] [employer] [phone]. She plan to return to the [facility] once discharge. Addendum: 07/18/20 at 1856 by LESLEY PALUMBO RN Amended: Links added.
[2020-07-18 20:00] VITALS: BP 150/72
[2020-07-18] MEDS ORDERED: TIZANIDINE HCL 4 MG TABLET PO SCH (22:00)
[2020-07-18] MEDS: ARIPIPRAZOLE 5 MG TABLET PO SCH (22:04)
[2020-07-19] VITALS (7 sets, daily range): BP systolic 119–147; BP diastolic 57–71
[2020-07-19] MEDS: METRONIDAZOLE 500MG/ NS 100ML 500 MG in PREMIX 1 EA IV SCH ×3 (03:47→19:13)
[2020-07-19] MEDS: HYDROCODONE/APAP 5/325MG TABLET PO PRN ×2 (03:57→16:01)
[2020-07-19] MEDS: CIPROFLOXACIN IV RTU 400 MG in PREMIX 1 EA IV SCH ×2 (04:53→16:14)
[2020-07-19 07:40] LABS: CALCIUM, SERUM 8.3 mg/dL (8.5-10.1); CREATININE 1.2 mg/dL (0.6-1.3); MAGNESIUM 1.8 mg/dL (1.8-2.4); PHOSPHORUS 3.3 mg/dL (2.5-4.9); POTASSIUM 4.2 mmol/L (3.5-5.1)
[2020-07-19 08:03] LABS: BASOPHILS % (AUTO) 0.2 % (0.0-2.0); EOSINOPHILS % (AUTO) 0.3 % (0.0-6.0); HEMATOCRIT 30 % (33-45); HEMOGLOBIN 9.6 g/dL (11.5-14.8); LYMPHOCYTES # (AUTO) 1.1 /CMM (0.8-4.8); LYMPHOCYTES % (AUTO) 8.4 % (20.0-44.0); MEAN CORPUSCULAR HGB CONC 32 g/dl (31.0-36.0); MEAN CORPUSCULAR VOLUME 96 fL (82-100); MONOCYTES # (AUTO) 0.5 /CMM (0.1-1.30); MONOCYTES % (AUTO) 4.3 % (2.0-12.0); NEUTROPHILS % (AUTO) 86.8 % (43.0-81.0); PLATELET COUNT (AUTO) 211 /CMM (150-450); RED BLOOD CELL COUNT(AUTO) 3.13 MIL/uL (4.0-5.2); WHITE BLOOD COUNT (AUTO) 12.7 K/uL (4.3-11.0)
[2020-07-19] MEDS: FLUOXETINE HCL 20 MG CAPSULE PO SCH (10:10)
[2020-07-19] MEDS: ENOXAPARIN SODIUM 40 MG/0.4 ML DISP.SYRIN SQ SCH (10:11)
[2020-07-19] MEDS: LISINOPRIL (10MG) 10 MG TABLET PO SCH (10:12)
[2020-07-19] MEDS: ATORVASTATIN 10 MG TABLET PO SCH (10:12)
--- NOTE | 2020-07-19 13:55 | NUR ---
BEACH PATROL LIEUTENANT NOTES RECEIVED A CALL FROM LAB REPORTING NEGATIVE COVID RESULT. DR. SPEARS MADE AWARE ORDERS TO TRANSFER PATIENT FROM COVID UNIT. RESIDENTIAL WORKER MADE AWARE.
--- NOTE | 2020-07-19 15:06 | NUR ---
POLICY VALUE CALCULATOR NOTES PATIENT IN STABLE CONDITION, TRANSFERRED TO ROOM 326-1. REPORT GIVEN TO ISA RICKETTS.
--- NOTE | 2020-07-19 15:06 | NUR ---
DECK SCALER NOTES CALLED GEMINI PATIENTS DAUGHTER INFORMED THAT PATIENT IS BEING TRANSFERRED TO ROOM 326-1.
--- NOTE | 2020-07-19 15:09 | NUR ---
GRAPHIC DESIGNER NOTES RECEIVED PATIENT (TRANSFER) FROM MS 2 IN MEDICALLY STABLE CONDITION. WILL CONTINUE TO MONITOR PATIENT.
--- NOTE | 2020-07-19 18:53 | NUR ---
ROLL REPAIRER CLOSING NOTES PATIENT IN BED, AWAKE, A/O X4. PATIENT ON OXYGEN THERAPY AT 2 LPM VIA NASAL CANNULA; BREATHING IS EVEN AND UNLABORED; NO SOB NOTED. ON TELE WITH A CURRENT READING OF NSR 89. PAIN TREATED WITH PRN PAIN MEDICATION PER MD ORDER. LAC G # 18 IV ACCESS PRESENT AND INTACT. ALL NEEDS MET DURING THE DAY. SAFETY PRECAUTIONS IN PLACE; BED IN LOW POSITION AND LOCKED, RAILS UP X2, CALL LIGHT WITHIN REACH. WILL ENDORSE TO DEVELOPMENT REPRESENTATIVE NURSE.
--- NOTE | 2020-07-19 19:30 | NUR ---
MARINE ELECTRONICS REPAIRER OPENING NOTES PATIENT RECEIVED RESTING IN BED COMFORTABLY; A/OX4, BREATHING EVEN AND UNLABORED; NO SOB NOTED; PATIENT ON 2LPM VIA NC, TOLERATING WELL; TELE MONITOR READS SINUS RHYTHM; PATIENT ABLE TO MAKE NEEDS KNOWN; NO DISTRESS NOTED; PATIENT DENIES PAIN; PATIENT REPORTED SHE JUST FEELS TIRED AND HOPES TO REST THROUGHOUT THE NIGHT; L AC #18 INTACT AND PATENT, INFUSING NS @ 75ML/HR; TOLERATING IVF WELL; SAFETY PRECAUTIONS IMPLEMENTED; BED LOCKED IN LOW POSITION; SIDE RAILSX2; CALL LIGHT WITHIN REACH; WILL CONT TO MONITOR
[2020-07-19] MEDS: ARIPIPRAZOLE 5 MG TABLET PO SCH (21:50)
[2020-07-20] VITALS: BP 147/59
[2020-07-20] MEDS: MORPHINE SULFATE INJ 2 MG/ML DISP.SYRIN IV PRN ×4 (00:37→21:14)
[2020-07-20] MEDS: METRONIDAZOLE 500MG/ NS 100ML 500 MG in PREMIX 1 EA IV SCH ×3 (02:00→19:06)
[2020-07-20 04:00] VITALS: BP 136/80
[2020-07-20] MEDS: CIPROFLOXACIN IV RTU 400 MG in PREMIX 1 EA IV SCH ×2 (04:21→17:01)
--- NOTE | 2020-07-20 06:35 | NUR ---
FIRE OBSERVER CLOSING NOTES PATIENT RESTING IN BED COMFORTABLY; A/OX4, BREATHING EVEN AND UNLABORED; PATIENT ON 2LPM VIA NC, TOLERATING WELL; NO SOB NOTED; NO DISTRESS NOTED; TELE MONITOR READS SINUS RHYTHM; PATIENT ABLE TO MAKE NEEDS KNOWN; L AC # 18 INTACT AND PATENT, INFUSING NS @ 75ML/HR; SAFETY PRECAUTIONS IMPLEMENTED; BED LOCKED IN LOW POSITION; SIDE RAILSX2; CALL LIGHT WITHIN EASY REACH; WILL ENDORSE KANIKA TO ONCOMING SHIFT
--- NOTE | 2020-07-20 07:38 | NUR ---
MS/RN OPENING NOTE RECEIVED FROM PROFESSIONAL NURSE. PATIENT IS IN BED RESTING COMFORTABLY. PATIENT IS A/O X4. VS SIGNS WITHIN NORMAL RANGE. TELE MONITOR READING SINUS RHYTHM. NO ACUTE DISTRESS NOTED. PATIENT STATES HAVING BACK PAIN 05/10. WILL ADMINISTER PAIN MEDICATION. SAFETY PRECAUTION IN PLACE. PATIENT BED IS LOCKED AND IN LOWEST POSITION, CALL LIGHT WITHIN REACH. WILL CONTINUE TO MONITOR AND ENSURE SAFETY.
[2020-07-20 08:00] VITALS: BP 152/77
[2020-07-20] MEDS: FLUOXETINE HCL 20 MG CAPSULE PO SCH (08:19)
[2020-07-20] MEDS: ATORVASTATIN 10 MG TABLET PO SCH (08:20)
[2020-07-20] MEDS: LISINOPRIL (10MG) 10 MG TABLET PO SCH (08:20)
--- NOTE | 2020-07-20 08:20 | NUR ---
MS/RN MEDICATIONS MEDICATIONS WERE GIVEN INCLUDING MORPHINE 2MG IV PUSH FOR PAIN SCALE 7/10. PATIENT COMPLAINING OF BACK PAIN, WILL REASSESS EFFECTIVENESS.
[2020-07-20] MEDS: ENOXAPARIN SODIUM 40 MG/0.4 ML DISP.SYRIN SQ SCH (08:21)
--- NOTE | 2020-07-20 09:00 | NUR ---
MS/RN S/B NOA PRECISION AGRONOMIST S/B PRECISION AGRONOMIST CONTINUE ORDERS POSSIBLE DISCHARGE TOMORROW IF PATIENT CAN TOLERATE DIET AND PAIN IS CONTROLLED. COLACE 100MG PO BID ORDERED SINCE NO BM SINCE ADMISSION. FIRST DOSE GIVEN NOW.
[2020-07-20] MEDS: DOCUSATE SODIUM 100 MG CAPSULE PO SCH ×2 (09:12→17:01)
--- NOTE | 2020-07-20 12:45 | NUR ---
MS/RN IV CHANGE LEFT AC #18 REMOVED. INSERTED NEW IV #24 ON LEFT HAND. NEW PERIPHERAL IV SITE IS INTACT AND PATENT.
[2020-07-20] MEDS: IV NS 0.9% 1,000 ML IV PRN (15:40)
[2020-07-20 16:00] VITALS: BP 155/78
--- NOTE | 2020-07-20 18:10 | NUR ---
MS/RN IV CHANGE LEFT HAND HEPLOCK REMOVED. NEW IV LEFT HAND, THUMB, #22. PERIPHERAL LINE INTACT AND PATENT.
--- NOTE | 2020-07-20 18:32 | NUR ---
MS/RN CLOSING NOTE PATIENT REMAINS STABLE. IN BED A/O X4. VS WITHIN NORMAL RANGE. PATIENT ON OXYGEN THERAPY 2L/MIN VIA NASAL CANNULA. TELE READING NSR. IV SITE REMOVED FROM LEFT AC HEPLOCK TO RIGHT HAND WITH #24. 1810 RT HAND HEPLOCK WAS REMOVED, NEW IV SITE RIGHT HAND, THUMB, #22 WAS INSERTED. INTACT AND PATENT. ALL NEEDS ADDRESSED. WILL ENDORSE TO DISTRICT AGENT.
--- NOTE | 2020-07-20 19:45 | NUR ---
CAD DRAFTER OPENING NOTES RECEIVED PATIENT RESTING IN BED COMFORTABLY; A/OX4, TOLERATING 2LPM VIA NC WELL, SATTING 96%, NO SOB NOTED; BREATHING EVEN AND UNLABORED; TELE MONITOR READS SINUS RHYTHM; L WRIST # 22 INTACT AND PATENT; TOLERATING IVF WELL; PATIENT ABLE TO MAKE NEEDS KNOWN; PATIENT AMBULATORY WITH ASSISTANCE; SAFETY PRECAUTIONS IMPLEMENTED; BED LOCKED IN LOW POSITION; SIDE RAILSX2; CALL LIGHT WITHIN REACH; WILL CONT TO MONITOR
[2020-07-20 20:00] VITALS: BP 118/59
[2020-07-20] MEDS: ARIPIPRAZOLE 5 MG TABLET PO SCH (21:13)
[2020-07-21] VITALS: BP 128/92
[2020-07-21] MEDS: METRONIDAZOLE 500MG/ NS 100ML 500 MG in PREMIX 1 EA IV SCH ×2 (02:41→11:00)
[2020-07-21] MEDS: MORPHINE SULFATE INJ 2 MG/ML DISP.SYRIN IV PRN ×2 (03:22→13:53)
[2020-07-21 04:00] VITALS: BP 133/68
[2020-07-21] MEDS: CIPROFLOXACIN IV RTU 400 MG in PREMIX 1 EA IV SCH ×2 (04:05→17:24)
--- NOTE | 2020-07-21 06:47 | NUR ---
SCIENTIFIC SOFTWARE ENGINEER CLOSING NOTES PATIENT RESTING IN BED COMFORTABLY; A/OX4, BREATHING EVEN AND UNLABORED; TOLERATING 2LPM VIA NC WELL; NO SOB NOTED; NO DISTRESS NOTED; TELE MONITOR READS NSR; PATIENT ABLE TO MAKE NEEDS KNOWN; L WRIST # 22 INTACT AND PATENT, TOLERATING IVF WELL; ALL NEEDS RENDERED; SAFETY PRECAUTIONS IMPLEMENTED; BED LOCKED IN LOW POSITION; SIDE RAILSX2; CALL LIGHT WITHIN REACH; WILL ENDORSE KANIKA TO ONCOMING SHIFT
[2020-07-21 06:56] LABS: BASOPHILS # (AUTO) 0.1 /CMM (0.0-0.2); BASOPHILS % (AUTO) 0.7 % (0.0-2.0); HEMATOCRIT 30 % (33-45); LYMPHOCYTES # (AUTO) 1.3 /CMM (0.8-4.8); LYMPHOCYTES % (AUTO) 19.4 % (20.0-44.0); MEAN CORPUSCULAR HGB CONC 34 g/dl (31.0-36.0); MEAN CORPUSCULAR VOLUME 95 fL (82-100); MONOCYTES # (AUTO) 0.6 /CMM (0.1-1.30); MONOCYTES % (AUTO) 9.1 % (2.0-12.0); NEUTROPHILS # (AUTO) 4.6 /CMM (1.8-8.9); NEUTROPHILS % (AUTO) 65.8 % (43.0-81.0); PLATELET COUNT (AUTO) 226 /CMM (150-450); RED BLOOD CELL COUNT(AUTO) 3.13 MIL/uL (4.0-5.2); WHITE BLOOD COUNT (AUTO) 6.9 K/uL (4.3-11.0)
--- NOTE | 2020-07-21 07:04 | NUR ---
SWIMMING PROFESSOR OPENING NOTES RECEIVED PT RESTING IN BED AT THIS TIME. PT IS A/O X4, PT ON EXTERNAL TELE LOGISTICS AND PLANNING MANAGER READING SR IN THE 70S. NO SOB NOTED, NO S/S OF ANY ACUTE DISTRESS NOTED. NO C/O PAIN AT THIS TIME. RESPIRATIONS ARE EVEN AND UNLABORED WITH EQUAL RISE AND FALL IN CHEST. IV ACCESS NOTED IN LEFT WRIST G#22, INTACT, PATENT AND FLUSHING WELL. ASPIRATION AND SAFETY PRECAUTION IN PLACE AND MAINTAINED AT ALL TIMES. BED IN LOWEST LOCKED POSITION, HOB ELEVATED, SIDE RAILS UP X 2, CALL LIGHT WITHIN REACH. WILL CONTINUE TO MONITOR
[2020-07-21 07:05] LABS: CALCIUM, SERUM 8.5 mg/dL (8.5-10.1); CREATININE 1.2 mg/dL (0.6-1.3); POTASSIUM 3.8 mmol/L (3.5-5.1)
[2020-07-21] MEDS: ENOXAPARIN SODIUM 40 MG/0.4 ML DISP.SYRIN SQ SCH (09:07)
[2020-07-21] MEDS: ATORVASTATIN 10 MG TABLET PO SCH (09:14)
[2020-07-21 09:15] VITALS: BP 142/73
[2020-07-21] MEDS: DOCUSATE SODIUM 100 MG CAPSULE PO SCH ×2 (09:15→17:08)
[2020-07-21] MEDS: LISINOPRIL (10MG) 10 MG TABLET PO SCH (09:15)
[2020-07-21] MEDS: FLUOXETINE HCL 20 MG CAPSULE PO SCH (09:15)
--- NOTE | 2020-07-21 11:30 | NUR ---
PT NOTED VOMITING FOOD PARTICLE OF RICE/BEANS AND C/O OF PAIN 04/09. VS WNL. PER PATIENT REQUEST MORPHINE 2MG IV Q4HR PRN FOR PAIN AND ZOFRAN 4MG IVP Q6HR PRN FOR NAUSEA/VOMITING WAS ADMINISTERED PER ORDER. WILL CONTINUE TO MONITOR Addendum: 07/21/20 at 1300 by LAURO TREVIÑO RN THIS NOTE NOT MEANT FOR THIS PATIENT
[2020-07-21] MEDS ORDERED: METR-147 PO (13:45)
[2020-07-21] MEDS ORDERED: CIPR500S3 PO (13:45)
--- NOTE | 2020-07-21 13:54 | NUR ---
PT C/O OF PAIN 06/10. VS WNL. PER PATIENT REQUEST MORPHINE 2MG IV Q4HR PRN FOR PAIN WAS ADMINISTERED PER ORDER. WILL CONTINUE TO MONITOR Addendum: 07/21/20 at 1447 by LAURO TREVIÑO RN PT C/O OF ACHING BACK/SHOULDER PAIN. 06/10. VS WNL. PER PATIENT REQUEST MORPHINE 2MG IV Q4HR PRN FOR PAIN WAS ADMINISTERED PER ORDER. WILL CONTINUE TO MONITOR
--- NOTE | 2020-07-21 18:50 | NUR ---
AUTOMATIC BUFFER CLOSING NOTES PT AWAKE IN BED AT THIS. PT REMAINED STABLE THROUGHOUT SHIFT. PT KEPT CLEAN AND DRY. ALL NEED, CARE, MEDICATIONS AND TREATMENT ADMINISTERED ANTICIPATED PER ORDER. SAFETY PRECAUTION IN PLACE AND MAINTAINED AT ALL TIMES. BED IN LOWEST LOCKED POSITION, HOB ELEVATED, SIDE RAILS UP X 2, CALL LIGHT WITHIN REACH. WILL ENDORSE TO SENIOR PACKAGING ENGINEER NURSE FOR KANIKA
--- NOTE | 2020-07-21 19:53 | NUR ---
CULINARY INTERN NOTES PATIENT DISCHARGED VIA GURNEY ACCOMPANIED BY TRANSPORTERS. A/O X 4. MEDICALLY STABLE. DISCHARGE EDUCATION DONE. DISCHARGE PACKET GIVEN TO TRANSPORTER. ALL BELONGINGS WITH PATIENT. IV REMOVED. ID BAND REMOVED. VITALS TAKEN, STABLE.
== END 2020-07-21 19:45 | disposition home health service (06) | DRG 391 ==
LOC: ER 02:27 → TELE1 06:28 → TELE2 08:11 → TELE 07-19 15:06
PROVIDERS: ADMIT Internal Medicine; ATTEND Nurse Practitioner Acute Care
DX: K57.32 Diverticulitis of large intestine without perforation or abscess without bleeding (principal); J96.01 Acute respiratory failure with hypoxia; J18.9 Pneumonia, unspecified organism; N17.0 Acute kidney failure with tubular necrosis; I12.9 Hypertensive chronic kidney disease with stage 1 through stage 4 chronic kidney disease, or unspecified chronic kidney disease; N18.9 Chronic kidney disease, unspecified; G40.909 Epilepsy, unspecified, not intractable, without status epilepticus; J45.909 Unspecified asthma, uncomplicated; E78.5 Hyperlipidemia, unspecified; Z79.899 Other long term (current) drug therapy; Z79.51 Long term (current) use of inhaled steroids; G89.29 Other chronic pain; Z98.890 Other specified postprocedural states; Z86.19 Personal history of other infectious and parasitic diseases; Z91.041 Radiographic dye allergy status; Z88.0 Allergy status to penicillin; Z88.8 Allergy status to other drugs, medicaments and biological substances; Z91.018 Allergy to other foods; Z79.82 Long term (current) use of aspirin
CPT/HCPCS: 36415; 80048-TC; 80061-TC; 80076-TC; 81000-TC; 83605-TC; 83735-TC; 84100-TC; 84484-TC; 85025-TC; 85730-TC; 87040-TC; 87086-TC; 93307-TC; A4216; C9803; G0378; J0744; J1650; J2270; J2405; J3370; J7030; Q9967; U0003

== ENCOUNTER 2021-04-21 13:55 | Inpatient (IN) | payer MEDICARE, OTHER ==
[~2021-04-21] VITALS: Ht 162.6 cm; Wt 99.8 kg
[~2021-04-21 13:55] MED LIST changes: +ALBU18HF2 IH; -ASPI-1420 PO; +CIPR500S3 PO; -DIPH1TAB PO; -DOCU-141 PO; -FERR325T23 PO; -FLUT1BLS IH; -GABA-532 PO; -LAMO100T17 PO; -LEVO25TA9 PO; +LISI10TA29 PO; -LISI10TA5 PO; +MECL-159 PO; +METR-147 PO; -MONT10TA22 PO; -TOPI50TA24 PO; -ZOLP5TAB8 PO
--- NOTE | 2021-04-21 14:08 | NUR ---
CP, STARTED AT 12 NOON TODAY - [facility] TO ER; NITRO X 2, ASA 325 MG PO X 1
[2021-04-21] MEDS ORDERED: NITROGLYCERIN PACKET 1 GM PACKET TD ONE (14:30)
[2021-04-21] MEDS ORDERED: ASPIRIN 325 MG TABLET PO ONE (14:30)
[2021-04-21] MEDS ORDERED: NITROGLYCERIN PACKET 1 GM PACKET ONE (14:36)
[2021-04-21] MEDS ORDERED: ASPIRIN 325 MG TABLET ONE (14:36)
[2021-04-21] MEDS ORDERED: FERR325T23 PO (15:16)
[2021-04-21] MEDS ORDERED: GABA-532 PO (15:16)
[2021-04-21] MEDS ORDERED: TOPI25TA49 PO (15:16)
[2021-04-21] MEDS ORDERED: TEMA15CA PO (15:16)
[2021-04-21] MEDS ORDERED: MONT10TA22 PO (15:16)
[2021-04-21] MEDS ORDERED: TRAM50TA2 PO (15:16)
[2021-04-21] MEDS ORDERED: FLUT1BLS IH (15:16)
[2021-04-21] MEDS ORDERED: LEVO50TA8 PO (15:16)
[2021-04-21] MEDS ORDERED: ACET325T53 PO (15:16)
[2021-04-21] MEDS ORDERED: LAMO100T17 PO (15:16)
[2021-04-21] MEDS ORDERED: CYAN-51 PO (15:16)
[2021-04-21] MEDS ORDERED: FLUT16SP NS (15:16)
[2021-04-21] MEDS ORDERED: ASPI-1169 PO (15:16)
[2021-04-21 15:17] LABS: BASOPHILS # (AUTO) 0.1 K/uL (0.0-0.2); BASOPHILS % (AUTO) 1.3 % (0.0-2.0); EOSINOPHILS % (AUTO) 6.2 % (0.0-6.0); HEMATOCRIT 37 % (33-45); LYMPHOCYTES # (AUTO) 1.8 K/uL (0.8-4.8); LYMPHOCYTES % (AUTO) 25.3 % (20.0-44.0); MEAN CORPUSCULAR HGB CONC 33 g/dl (31.0-36.0); MEAN CORPUSCULAR VOLUME 96 fL (82-100); MONOCYTES # (AUTO) 0.6 K/uL (0.1-1.30); MONOCYTES % (AUTO) 9.2 % (2.0-12.0); PLATELET COUNT (AUTO) 228 K/uL (150-450); RED BLOOD CELL COUNT(AUTO) 3.85 MIL/uL (4.0-5.2)
[2021-04-21 15:38] LABS: CALCIUM, SERUM 8.5 mg/dL (8.5-10.1); CARBON DIOXIDE 22 mmol/L (21-32); CHLORIDE 108 mmol/L (98-107); CREATININE 1.4 mg/dL (0.6-1.3); GLUCOSE 96 mg/dL (74-106); POTASSIUM 4.3 mmol/L (3.5-5.1); SODIUM SERUM 142 mmol/L (136-145); UREA NITROGEN, BLOOD 24 mg/dL (7-18)
--- NOTE | 2021-04-21 15:42 | NUR ---
PAGED [facility].
--- NOTE | 2021-04-21 15:48 | NUR ---
covid swab done and sent to the lab
--- NOTE | 2021-04-21 16:02 | NUR ---
BED ASSIGNED 117-1
--- NOTE | 2021-04-21 16:42 | NUR ---
REPORT GIVEN TO NURSE FRANKLIN
--- NOTE | 2021-04-21 16:55 | NUR ---
the patient is transfered to assigned room in stable condition
--- NOTE | 2021-04-21 16:56 | NUR ---
Leeanna grier in [facility] - 04/21/21 at 1657 by PREET Report given to nurse Crowe
--- NOTE | 2021-04-21 17:25 | NUR ---
PEBBLE MILL OPERATOR NOTE PATIENT ADMITTED FROM ER RELATED TO CHEST PAIN. PATIENT TRANSFERRED VIA GURNEY ACCOMPANIED BY 1 NURSE. PATIENT ABLE TO TRANSFER HERSELF TO THE BED. RECEIVED PATIENT A/O X4. ABLE TO MAKE NEEDS KNOWN ON ROOM AIR WITH NO RESPIRATORY DISTRESS, WITH EVEN AND UNLABORED BREATHING. IV ACCESS ON RIGHT AC G18 INTACT AND PATENT. SAFETY MEASURES IMPLEMENTED. BED LOCKED AND IN LOWEST POSITION WITH SIDE RAILS UP X3. NO ACUTE DISTRESS AND NO COMPLAINT OF PAIN. PATIENT ENDORSED TO NEXT SHIFT FOR CONTINUITY OF CARE.
[2021-04-21] MEDS ORDERED: Z GUARD REMEDY 2 OZ OINT TP PRN (17:30)
[2021-04-21] MEDS ORDERED: ALBUTEROL SULFATE INH 18 GM HFA.AER.AD IH PRN (17:30)
[2021-04-21] MEDS ORDERED: MORPHINE SULFATE INJ 2 MG/ML DISP.SYRIN IV PRN (17:30)
[2021-04-21] MEDS ORDERED: MAGNESIUM HYDROXIDE 30 ML UDC PO PRN (17:30)
[2021-04-21] MEDS ORDERED: ONDANSETRON HCL/PF 4 MG/2 ML VIAL IVP PRN (17:30)
[2021-04-21] MEDS ORDERED: NITROGLYCERIN 4.9 GM SPRAY SL PRN (17:30)
[2021-04-21] MEDS ORDERED: MECLIZINE HCL 25 MG TABLET PO PRN (17:30)
[2021-04-21] MEDS ORDERED: TEMAZEPAM 15 MG CAPSULE PO PRN (17:30)
[2021-04-21] MEDS ORDERED: NITROGLYCERIN 0.4 MG/TAB BOTTLE SL PRN (17:30)
[2021-04-21] MEDS ORDERED: ACETAMINOPHEN 325 MG TABLET PO PRN (17:30)
[2021-04-21] MEDS ORDERED: MAG HYDROX/AL HYDROX/SIMETH 30 ML UDC PO PRN (17:30)
[2021-04-21] MEDS ORDERED: TRAMADOL HCL 50 MG TABLET PO PRN (17:30)
[2021-04-21] MEDS ORDERED: ALBUTEROL FS 2.5 MG/3 ML VIAL.NEB NEB PRN (18:00)
[2021-04-21] MEDS: ENOXAPARIN SODIUM 40 MG/0.4 ML DISP.SYRIN SQ SCH (18:21)
[2021-04-21 20:00] VITALS: BP 128/66
[2021-04-21] MEDS: ARIPIPRAZOLE 5 MG TABLET PO SCH (22:04)
[2021-04-21] MEDS: GABAPENTIN 100 MG CAPSULE PO SCH (22:05)
[2021-04-22] VITALS: BP 120/66
[2021-04-22 04:00] VITALS: BP 143/81
[2021-04-22 06:27] LABS: BASOPHILS # (AUTO) 0.1 K/uL (0.0-0.2); BASOPHILS % (AUTO) 1.4 % (0.0-2.0); EOSINOPHILS % (AUTO) 8.4 % (0.0-6.0); HEMATOCRIT 38 % (33-45); HEMOGLOBIN 12.6 g/dL (11.5-14.8); LYMPHOCYTES # (AUTO) 1.9 K/uL (0.8-4.8); LYMPHOCYTES % (AUTO) 31.9 % (20.0-44.0); MEAN CORPUSCULAR HGB CONC 33 g/dl (31.0-36.0); MEAN CORPUSCULAR VOLUME 95 fL (82-100); MONOCYTES # (AUTO) 0.4 K/uL (0.1-1.30); MONOCYTES % (AUTO) 6.6 % (2.0-12.0); NEUTROPHILS # (AUTO) 3.1 K/uL (1.8-8.9); NEUTROPHILS % (AUTO) 51.7 % (43.0-81.0); PLATELET COUNT (AUTO) 253 K/uL (150-450); RED BLOOD CELL COUNT(AUTO) 4.05 MIL/uL (4.0-5.2)
[2021-04-22 06:33] LABS: CALCIUM, SERUM 8.9 mg/dL (8.5-10.1); CREATININE 1.5 mg/dL (0.6-1.3); MAGNESIUM 1.9 mg/dL (1.8-2.4); PHOSPHORUS 4.9 mg/dL (2.5-4.9); POTASSIUM 4.1 mmol/L (3.5-5.1)
--- NOTE | 2021-04-22 07:05 | NUR ---
RN NOTES RECEIVED PATIENT A/O X4. ON ROOM AIR WITH NO RESPIRATORY DISTRESS, WITH EVEN AND UNLABORED BREATHING. NO CHEST AT THIS TIME, RIGHT AC G18 INTACT AND PATENT. SAFETY MEASURES IMPLEMENTED. BED LOCKED AND IN LOWEST POSITION WITH SIDE RAILS UP X3. CONTINUE TO MONITOR .
[2021-04-22] MEDS ORDERED: LEVOTHYROXINE SODIUM 25 MCG TABLET PO SCH (07:30)
[2021-04-22 08:00] VITALS: BP 136/64
[2021-04-22] MEDS ORDERED: TOPIRAMATE 25 MG TABLET PO SCH (09:00)
[2021-04-22] MEDS ORDERED: ASPIRIN 81 MG TAB.CHEW PO SCH (09:00)
[2021-04-22] MEDS ORDERED: FLUTICASONE/VILANTEROL 1 EACH BLST.W.DEV IH SCH (09:00)
[2021-04-22] MEDS ORDERED: ATORVASTATIN 10 MG TABLET PO SCH (09:00)
[2021-04-22] MEDS ORDERED: LEVOTHYROXINE SODIUM 50 MCG TABLET PO SCH (09:00)
[2021-04-22] MEDS ORDERED: FLUOXETINE HCL 20 MG CAPSULE PO SCH (09:00)
[2021-04-22] MEDS ORDERED: LamoTRIgine 100 MG TABLET PO SCH (09:00)
[2021-04-22] MEDS ORDERED: PANTOPRAZOLE 40 MG VIAL IV SCH (09:00)
[2021-04-22] MEDS ORDERED: MONTELUKAST SODIUM (10MG) 10 MG TABLET PO SCH (09:00)
[2021-04-22] MEDS: IV NS 0.9% 1,000 ML IV PRN ×2 (09:29→19:06)
[2021-04-22 09:42] LABS: IRON, SERUM 85 ug/dl (50-175); TOTAL IRON BINDING CAPACITY 264 ug/dl (250-450)
[2021-04-22 09:58] LABS: FERRITIN 92 ng/mL (8-388)
--- NOTE | 2021-04-22 11:55 | NUR ---
RN NOTES REPORT GIVEN TO SAY FOR CONTINUITY OF CARE.
[2021-04-22 12:00] VITALS: BP 119/69
[2021-04-22 16:00] VITALS: BP 130/68
--- NOTE | 2021-04-22 19:28 | NUR ---
REPORT TO JAMARCUS VILLARREAL AT [facility]. AMILCAR DEAL RN
--- NOTE | 2021-04-22 19:30 | NUR ---
RN NOTES RECEIVED PT FROM AM SHIFT FOR KANIKA;PENDING DC WITHIN SHIFT. WILL CARRY OUT MD ORDER AND MEDS SCHEDULED. [address] RO[address] PRODUCTION MANAGER WELL AWARE.
[2021-04-22 20:00] VITALS: BP 133/73
[2021-04-22] MEDS: ENOXAPARIN SODIUM 40 MG/0.4 ML DISP.SYRIN SQ SCH (20:56)
[2021-04-22] MEDS: GABAPENTIN 100 MG CAPSULE PO SCH (21:01)
[2021-04-22] MEDS: ARIPIPRAZOLE 5 MG TABLET PO SCH (21:01)
--- NOTE | 2021-04-22 21:23 | NUR ---
RN NOTES CALLED [facility] ; AND CONFIRMED FOR THE GEAR STRAIGHTENER OF PT; SCHEDULED TIME IS BETWEEN [phone]; SPOKE WITH TAMIA SHE CONFIRMED THAT PT IS TO BE PICKED UP TONIGHT GOING TO [facility] AND PROBABLY ON ITS WAY NOW. OPERATIONS SUPERINTENDENT MADE AWARE. AWAITING FOR THE AMBULANCE
--- NOTE | 2021-04-22 21:45 | NUR ---
RN NOTE PATIENT DISCHARGE GOING TO [facility] IN STABLE CONDITION AND VITAL SIGNS WNL, ALERT ORIENTED X4, NO ACUTE DISTRESS NOTED, BREATHING UNLABORED. DISCHARGE INSTRUCTIONS GIVEN INCLUDING HEALTH TEACHINGS, ALSO PROVIDED DISCHARGE PACKET WHICH INCLUDES MED RECORDS AND PRESCRIPTION. ALL BELONGINGS ACCOUNTED FOR. IV ACCESS REMOVED, NO REDNESS, NO BLEEDING, NO SWELLING NOTED. PICKED UP VIA AMBULANCE IN A GURNEY ACCOMPANIED BY 3 EMT PERSONNEL IN STABLE CONDITION. PROTECTOR PLATE ATTACHER MADE AWARE.
== END 2021-04-22 21:49 | DRG 313 ==
LOC: ER 13:57 → TELE1 16:12
PROVIDERS: ADMIT Internal Medicine; ATTEND Internal Medicine
DX: R07.89 Other chest pain (principal); N17.0 Acute kidney failure with tubular necrosis; J45.909 Unspecified asthma, uncomplicated; I25.2 Old myocardial infarction; I10 Essential (primary) hypertension; E78.5 Hyperlipidemia, unspecified; Z20.822 Contact with and (suspected) exposure to COVID-19; G40.909 Epilepsy, unspecified, not intractable, without status epilepticus; I25.10 Atherosclerotic heart disease of native coronary artery without angina pectoris; Z79.890 Hormone replacement therapy; Z79.51 Long term (current) use of inhaled steroids; Z79.82 Long term (current) use of aspirin; Z79.899 Other long term (current) drug therapy; Z91.010 Allergy to peanuts; Z86.19 Personal history of other infectious and parasitic diseases; Z88.8 Allergy status to other drugs, medicaments and biological substances; Z91.018 Allergy to other foods; Z91.048 Other nonmedicinal substance allergy status; F25.9 Schizoaffective disorder, unspecified; E61.1 Iron deficiency; E66.01 Morbid (severe) obesity due to excess calories; D64.9 Anemia, unspecified; G62.9 Polyneuropathy, unspecified; Z87.19 Personal history of other diseases of the digestive system; Z96.89 Presence of other specified functional implants; K44.9 Diaphragmatic hernia without obstruction or gangrene; R13.10 Dysphagia, unspecified
CPT/HCPCS: 36415; 71045-TC; 80048-TC; 80061-TC; 82728-TC; 83540-TC; 83735-TC; 84100-TC; 84484-TC; 85025-TC; 87081-TC; 93307-TC; C9113; G0378; J1650; J7030; U0003

== ENCOUNTER 2022-01-30 20:11 | Emergency (ER) | payer OTHER ==
[~2022-01-30] VITALS: Ht 167.6 cm; Wt 65.8 kg
[~2022-01-30 20:11] MED LIST changes: +ACET325T53 PO; +ASPI-1169 PO; -CIPR500S3 PO; +CYAN-51 PO; +FERR325T23 PO; +FLUT16SP NS; +FLUT1BLS IH; +GABA-532 PO; -HYDR-4384 PO; -IBUP-1953 PO; +LAMO100T17 PO; +LEVO50TA8 PO; -LISI10TA29 PO; -METR-147 PO; +MONT10TA22 PO; +TEMA15CA PO; -TIZA4TAB5 PO; +TOPI25TA49 PO; +TRAM50TA2 PO
[2022-01-30 20:17] VITALS: BP 146/102
--- NOTE | 2022-01-30 20:35 | NUR ---
TO ER BED 12. BIB FROM [facility] C/O ITCHYNESS ON L LEG, FACE, AND CHEST X 1 WEEK. CHANGED INTO GOWN. AWAITING MD ALVAREZ
[2022-01-30] MEDS ORDERED: diphenhydrAMINE HCL 25 MG CAPSULE ONE (21:07)
[2022-01-30] MEDS ORDERED: predniSONE 20 MG TABLET ONE (21:07)
[2022-01-30] MEDS ORDERED: FAMOTIDINE (20 MG) 20 MG TABLET ONE (21:08)
[2022-01-30] MEDS ORDERED: predniSONE 10 MG TABLET PO ONE (21:30)
[2022-01-30] MEDS ORDERED: FAMOTIDINE (20 MG) 20 MG TABLET PO ONE (21:30)
[2022-01-30] MEDS ORDERED: diphenhydrAMINE HCL 50 MG CAPSULE PO ONE (21:30)
[2022-01-30] MEDS ORDERED: FAMO-131 PO (21:39)
[2022-01-30] MEDS ORDERED: DIPH25CA83 PO (21:39)
[2022-01-30] MEDS ORDERED: PRED20TA PO (21:39)
--- NOTE | 2022-01-30 21:54 | NUR ---
[facility] ETA 75-90 MINUTES.
--- NOTE | 2022-01-30 21:56 | NUR ---
REPORT GIVEN TO MARY BETH FROM [facility] FOR KANIKA. PT AWARE
--- NOTE | 2022-01-30 23:37 | NUR ---
REPORT GIVEN TO [facility] EMT FOR PT TO D/C TO [facility]. VSS. ALL BELONGING WITH PT
== END 2022-01-30 23:43 ==
LOC: ER 20:12
DX: T63.481A Toxic effect of venom of other arthropod, accidental (unintentional), initial encounter (principal); L29.8 Other pruritus; I10 Essential (primary) hypertension; J45.909 Unspecified asthma, uncomplicated; Z86.69 Personal history of other diseases of the nervous system and sense organs; Z87.19 Personal history of other diseases of the digestive system; Z88.8 Allergy status to other drugs, medicaments and biological substances; Z79.899 Other long term (current) drug therapy; Y92.89 Other specified places as the place of occurrence of the external cause
CPT/HCPCS: 99284; J7512 ×2; Q0163

== ENCOUNTER 2022-02-10 06:50 | Inpatient (IN) | payer OTHER ==
[~2022-02-10] VITALS: Ht 167.6 cm; Wt 71.2 kg
[~2022-02-10 06:50] MED LIST changes: +DIPH25CA83 PO; +PRED20TA PO
--- NOTE | 2022-02-10 07:13 | NUR ---
[id number] FROM [facility] C/O FEVER AND FEELING SICK. AT TRIAGE TEMP 103.3. PT AWAKE AND ALERT X4 AMBULATORY WITH STEADY GAIT. CHANGED INTO GOWN AND PLACED ON MONITOR. WAS AT BEDSIDE FOR EVAL.
[2022-02-10] MEDS ORDERED: IBUPROFEN 600 MG TABLET ONE (07:15)
[2022-02-10] MEDS ORDERED: ACETAMINOPHEN ES 500 MG TABLET ONE (07:15)
--- NOTE | 2022-02-10 07:20 | NUR ---
URINE COLLECTED AND SENT TO LAB
--- NOTE | 2022-02-10 07:29 | NUR ---
R WRIST #18G S/L; PATENT AND INTACT. BLOOD COLLECTED AND SENT TO LAB
[2022-02-10] MEDS ORDERED: IV NS 0.9% 1,000 ML BAG IV ONE (07:30)
[2022-02-10] MEDS ORDERED: ACETAMINOPHEN ES 500 MG TABLET PO ONE (07:30)
[2022-02-10] MEDS ORDERED: IBUPROFEN 600 MG TABLET PO ONE (07:30)
[2022-02-10 07:42] LABS: BASOPHILS % (AUTO) 0.3 % (0.0-2.0); EOSINOPHILS % (AUTO) 1.6 % (0.0-6.0); HEMATOCRIT 42 % (33-45); HEMOGLOBIN 13.8 g/dL (11.5-14.8); LYMPHOCYTES # (AUTO) 0.7 K/uL (0.8-4.8); LYMPHOCYTES % (AUTO) 5.1 % (20.0-44.0); MEAN CORPUSCULAR HGB CONC 33 g/dl (31.0-36.0); MEAN CORPUSCULAR VOLUME 95 fL (82-100); MONOCYTES # (AUTO) 0.7 K/uL (0.1-1.30); NEUTROPHILS # (AUTO) 11.4 K/uL (1.8-8.9); PLATELET COUNT (AUTO) 240 K/uL (150-450); RED BLOOD CELL COUNT(AUTO) 4.43 MIL/uL (4.0-5.2)
[2022-02-10 07:49] LABS: BILIRUBIN,URINE NEGATIVE (NEGATIVE); COLOR,URINE YELLOW (YELLOW); LEUKOCYTE ESTERASE ,URINE NEGATIVE (NEGATIVE); NITRITE, URINE NEGATIVE (NEGATIVE); PROTEIN,URINE NEGATIVE (NEGATIVE); UGLUCOSE NEGATIVE (NEGATIVE); UROBILINOGEN,URINE 0.2 EU/dL (0.2)
[2022-02-10] MEDS ORDERED: LEVOFLOXACIN 750 MG /D5W 150ML 150 ML IV ONE ×2 (08:28→08:30)
--- NOTE | 2022-02-10 08:40 | NUR ---
COVID SWAB AND FLU SWAB DONE AND SENT TO LAB
[2022-02-10 08:44] LABS: ALANINE AMINOTRANSFERASE 26 U/L (12-78); ALBUMIN 3.8 g/dL (3.4-5.0); ALKALINE PHOSPHATASE 140 U/L (46-116); ASPARTATE AMINOTRANSFERASE 20 U/L (15-37); BILIRUBIN,DIRECT 0.1 mg/dL (0.0-0.2); BILIRUBIN,TOTAL 0.5 mg/dL (0.2-1.0); CALCIUM, SERUM 8.7 mg/dL (8.5-10.1); CARBON DIOXIDE 19 mmol/L (21-32); CHLORIDE 105 mmol/L (98-107); CREATININE 1.7 mg/dL (0.6-1.3); GLUCOSE 129 mg/dL (74-106); POTASSIUM 4.4 mmol/L (3.5-5.1); SODIUM SERUM 138 mmol/L (136-145); TOTAL PROTEIN, SERUM 7.6 g/dL (6.4-8.2); UREA NITROGEN, BLOOD 26 mg/dL (7-18)
--- NOTE | 2022-02-10 09:14 | NUR ---
RAPID INFLUENZA OBTAINED AND SENT TO LAB.
--- NOTE | 2022-02-10 09:44 | NUR ---
PT RECIEVED VERBAL AUTHORIZATION TO STAY BY DR. WELLS
[2022-02-10] MEDS ORDERED: HYDROCODONE/APAP 5/325MG TABLET PO PRN (10:30)
[2022-02-10] MEDS ORDERED: TEMAZEPAM 15 MG CAPSULE PO PRN (10:30)
[2022-02-10] MEDS ORDERED: MAG HYDROX/AL HYDROX/SIMETH 30 ML UDC PO PRN (10:30)
[2022-02-10] MEDS ORDERED: MAGNESIUM HYDROXIDE 30 ML UDC PO PRN (10:30)
[2022-02-10] MEDS ORDERED: ONDANSETRON HCL/PF 4 MG/2 ML VIAL IVP PRN (10:30)
[2022-02-10] MEDS ORDERED: ACETAMINOPHEN 325 MG TABLET PO PRN (10:30)
[2022-02-10] MEDS ORDERED: Z GUARD REMEDY 4 OZ OINT TP PRN (10:30)
--- NOTE | 2022-02-10 10:43 | NUR ---
ROOM GIVEN 583-4
--- NOTE | 2022-02-10 10:55 | NUR ---
ATTEMPTED TO GIVE REPORT, PER UNIT SEC, NURSE IS DISCHARGING A PATIENT
--- NOTE | 2022-02-10 11:06 | NUR ---
REPORT GIVEN TO JAMARCUS HEARD FOR KANIKA.
--- NOTE | 2022-02-10 11:48 | NUR ---
EMPLOYEE JASWANT VORA ON PT CHART AND UNABLE TO DEPART.
--- NOTE | 2022-02-10 11:50 | NUR ---
ms rn received a new admission from er,66 year old female, came in with dx of sepsis,oriented x3,not in any form of distress, respirations even and unlabored,no distress noted, denies pain at this time, all needs attended.
[2022-02-10 12:00] VITALS: BP 98/43
--- NOTE | 2022-02-10 15:00 | NUR ---
ms oliver was seen by remberto w/ orders made and carried out.
--- NOTE | 2022-02-10 17:30 | NUR ---
ms rn on bed, no distress noted,all needs attended.
[2022-02-10] MEDS: IV NS 0.9% 1,000 ML IV PRN (18:23)
--- NOTE | 2022-02-10 19:30 | NUR ---
MS RN OPENING NOTES: RECEIVED PATIENT IN BED, AWAKE, A/O X4, NO S/S OF DISTRESS NOTED. NO COMPLAIN OF PAIN. CALL LIGHT WITHIN REACH. BED IN LOWEST AND LOCKED POSITION. BED ALARM ON. HOB ELEVATED. INSTRUCTED PATIENT TO CALL FOR ASSISTANCE WHEN OOB, PATIENT VERBALIZED UNDERSTANDING.
[2022-02-10 20:00] VITALS: BP 121/58
[2022-02-11] VITALS: BP 124/55
[2022-02-11 04:00] VITALS: BP 133/61
[2022-02-11 07:24] LABS: BASOPHILS % (AUTO) 0.4 % (0.0-2.0); EOSINOPHILS % (AUTO) 2.1 % (0.0-6.0); HEMATOCRIT 36 % (33-45); HEMOGLOBIN 11.8 g/dL (11.5-14.8); LYMPHOCYTES # (AUTO) 1.3 K/uL (0.8-4.8); LYMPHOCYTES % (AUTO) 11.9 % (20.0-44.0); MEAN CORPUSCULAR HGB CONC 33 g/dl (31.0-36.0); MEAN CORPUSCULAR VOLUME 97 fL (82-100); MONOCYTES # (AUTO) 0.7 K/uL (0.1-1.30); MONOCYTES % (AUTO) 6.4 % (2.0-12.0); NEUTROPHILS # (AUTO) 8.5 K/uL (1.8-8.9); NEUTROPHILS % (AUTO) 79.2 % (43.0-81.0); PLATELET COUNT (AUTO) 186 K/uL (150-450); RED BLOOD CELL COUNT(AUTO) 3.72 MIL/uL (4.0-5.2); WHITE BLOOD COUNT (AUTO) 10.7 K/uL (4.3-11.0)
--- NOTE | 2022-02-11 07:25 | NUR ---
MS RN OPENING NOTES RECEIVED PATIENT IN BED, AWAKE, A/O X4. ON RA WITH NO S/SX OF RESP DISTRESS NOTED AT THIS TIME. DENIES PAIN. R WRIST G#18 WITH NS RUNNING AT 75ML/HR. CALL LIGHT WITHIN REACH. BED IN LOWEST AND LOCKED POSITION. BED ALARM ON. HOB ELEVATED. WILL CONTINUE PLAN OF CARE
[2022-02-11 07:58] VITALS: BP 140/71
[2022-02-11 08:14] LABS: CALCIUM, SERUM 8.4 mg/dL (8.5-10.1); CREATININE 1.4 mg/dL (0.6-1.3); MAGNESIUM 1.7 mg/dL (1.8-2.4); PHOSPHORUS 3.4 mg/dL (2.5-4.9); POTASSIUM 4.3 mmol/L (3.5-5.1)
[2022-02-11] MEDS: IV NS 0.9% 1,000 ML IV PRN (08:20)
[2022-02-11] MEDS: ASPIRIN 81 MG TAB.CHEW PO SCH (08:21)
[2022-02-11] MEDS: PANTOPRAZOLE 40 MG TABLET.DR PO SCH (08:21)
[2022-02-11] MEDS: LEVOFLOXACIN 250 MG /D5W 50 ML 250 MG in PREMIX 1 EA IV SCH (08:21)
[2022-02-11 08:42] LABS: THYROID STIMULATING HORMONE 1.112 uIU/mL (0.358-3.74)
[2022-02-11] MEDS ORDERED: LEVOFLOXACIN 500 MG /D5W 100ML 500 MG in PREMIX 1 EA IV SCH (09:00)
[2022-02-11] MEDS ORDERED: MAGNESIUM OXIDE 400 MG TABLET PO ONE (12:00)
[2022-02-11] MEDS ORDERED: ACETAMINOPHEN 325 MG TABLET PO PRN (13:00)
[2022-02-11] MEDS ORDERED: MECLIZINE HCL 25 MG TABLET PO PRN (13:00)
[2022-02-11] MEDS ORDERED: TEMAZEPAM 15 MG CAPSULE PO PRN (13:00)
[2022-02-11] MEDS ORDERED: TRAMADOL HCL 50 MG TABLET PO PRN (13:00)
[2022-02-11] MEDS ORDERED: ALBUTEROL FS 2.5 MG/0.5 ML VIAL.NEB IH PRN (13:00)
[2022-02-11 15:38] VITALS: BP 143/71
[2022-02-11] MEDS: FLUTICASONE PROPIONATE 16 GM BOTTLE NS SCH (18:20)
--- NOTE | 2022-02-11 18:54 | NUR ---
RN CLOSING NOTES PATIENT RESTING IN BED. NO S/SX OF DISTRESS NOTED. SEEN BY DR MONAE TODAY. ALL MEDICATIONS GIVEN AND NEEDS MET. SAFETY PRECAUTIONS IN PLACE. WILL ENDORSE TO THE INTERNAL GRINDER NURSE FOR KANIKA
--- NOTE | 2022-02-11 19:15 | NUR ---
MS RN OPENING NOTES: RECEIVED PATIENT IN BED, AWAKE, A/O X3-4. NO S/S OF DISTRESS NOTED. NO COMPLAIN OF PAIN. CALL LIGHT WITHIN REACH. BED ALARM ON. BED IN LOWEST AND LOCKED POSITION. HOB ELEVATED. INSTRUCTED PATIENT TO CALL FOR ASSISTANCE WHEN OOB, PATIENT VERBALIZED UNDERSTANDING. PER PATIENT SHE WALKED WITH THE PT TODAY UP TO THE DOOR.
[2022-02-11 20:00] VITALS: BP 149/71
[2022-02-11] MEDS: GABAPENTIN 100 MG CAPSULE PO SCH (21:33)
[2022-02-11] MEDS: ARIPIPRAZOLE 5 MG TABLET PO SCH (21:33)
[2022-02-12] MEDS: IV NS 0.9% 1,000 ML IV PRN (04:15)
[2022-02-12 06:48] LABS: CALCIUM, SERUM 8.5 mg/dL (8.5-10.1); CREATININE 1.3 mg/dL (0.6-1.3); MAGNESIUM 1.9 mg/dL (1.8-2.4); POTASSIUM 4.4 mmol/L (3.5-5.1)
[2022-02-12 06:55] LABS: BASOPHILS # (AUTO) 0.1 K/uL (0.0-0.2); BASOPHILS % (AUTO) 0.7 % (0.0-2.0); EOSINOPHILS % (AUTO) 3.2 % (0.0-6.0); HEMATOCRIT 34 % (33-45); HEMOGLOBIN 11.5 g/dL (11.5-14.8); LYMPHOCYTES # (AUTO) 1.9 K/uL (0.8-4.8); LYMPHOCYTES % (AUTO) 24.5 % (20.0-44.0); MEAN CORPUSCULAR HGB CONC 34 g/dl (31.0-36.0); MEAN CORPUSCULAR VOLUME 95 fL (82-100); MONOCYTES # (AUTO) 0.6 K/uL (0.1-1.30); MONOCYTES % (AUTO) 7.8 % (2.0-12.0); NEUTROPHILS # (AUTO) 4.9 K/uL (1.8-8.9); NEUTROPHILS % (AUTO) 63.8 % (43.0-81.0); PLATELET COUNT (AUTO) 198 K/uL (150-450); RED BLOOD CELL COUNT(AUTO) 3.59 MIL/uL (4.0-5.2); WHITE BLOOD COUNT (AUTO) 7.7 K/uL (4.3-11.0)
--- NOTE | 2022-02-12 07:20 | NUR ---
MS RN OPENING NOTES: RECEIVED PT IN BED ASLEEP EASILY TO AROUSE BY STIMULI. ALERT AND ORIENTED X3. NO SOB/NO CARDIAC DISTRESS NOTED, ON ROOM AIR TOLERATED WELL. NO COMPLAIN OF PAIN AT THIS TIME. NOTED WITH IV PERIPHERAL LINE ON LEFT WRIST G#18 WITH NS @75ML PATENT, INTACT AND INFUSING WELL. MAINTAINED SAFETY PRECAUTIONARY MEASURES: BED IN LOWEST POSITION AND LOCKED, WITH BED ALARM. CALL LIGHT IN EASY REACH FOR HELP/ASSISTANCE.
[2022-02-12] MEDS: TOPIRAMATE 25 MG TABLET PO SCH (08:40)
[2022-02-12] MEDS: PANTOPRAZOLE 40 MG TABLET.DR PO SCH (08:41)
[2022-02-12] MEDS: ASPIRIN 81 MG TAB.CHEW PO SCH ×2 (08:42→09:31)
[2022-02-12] MEDS: MONTELUKAST SODIUM (10MG) 10 MG TABLET PO SCH (08:42)
[2022-02-12] MEDS: FERROUS SULFATE (325 MG) 325 MG/TAB TABLET PO SCH (08:42)
[2022-02-12] MEDS: CYANOCOBALAMIN 500 MCG TABLET PO SCH (08:42)
[2022-02-12] MEDS: LEVOTHYROXINE SODIUM 50 MCG TABLET PO SCH (08:42)
[2022-02-12] MEDS: Fluoxetine 10 mg capsule PO SCH (08:43)
[2022-02-12] MEDS: ATORVASTATIN 10 MG TABLET PO SCH (08:43)
[2022-02-12] MEDS: LEVOFLOXACIN 250 MG /D5W 50 ML 250 MG in PREMIX 1 EA IV SCH (08:44)
[2022-02-12] MEDS: FLUTICASONE/VILANTEROL 1 EACH BLST.W.DEV IH SCH (08:45)
[2022-02-12] MEDS: FLUTICASONE PROPIONATE 16 GM BOTTLE NS SCH ×2 (09:29→16:28)
[2022-02-12] MEDS: LamoTRIgine 100 MG TABLET PO SCH (09:32)
--- NOTE | 2022-02-12 18:19 | NUR ---
RN NOTES PT'S RIGHT WRIST IV ACCESS G#18 NOTED LEAKING AND WAS REMOVED. NEW IV ACCESS INSERTED TO LEFT HAND G#24 AND CONTINUED PT WITH IVF OF NS@ 75ML/HR.
--- NOTE | 2022-02-12 18:46 | NUR ---
MS RN CLOSING NOTES: PATIENT IN BED WATCHING TELEVISION. COMFORTABLE AND NO SOB/DISTRESS NOTED. NO COMPLAIN OF ANY PAIN AT THIS TIME. ABLE TO VERBALIZED NEEDS. NOTED WITH IV PERIPHERAL ACCESS ON RIGHT WRIST INFUSING IV FLUID NS @ 75ML/HR. PATIENT AMBULATORY AND ABLE TO USE THE RESTROOM. MAINTAINED SAFETY PRECAUTIONARY MEASURES: BED LOCKED AND IN LOWEST POSITION. SIDE RAILS UP X2,WITH BED ALARM. CALL LIGHT WITHIN EASY REACH FOR HELP/ASSISTANCE. ENDORSED TO NEXT SHIFT FOR KANIKA.
--- NOTE | 2022-02-12 19:49 | NUR ---
MS RN OPENING NOTES: RECEIVED PATIENT AWAKE IN BED, BED IN LOW POSITION, CALL LIGHTS WITHIN REACH, NO COMPLAIN OF PAIN AND DISCOMFORT AT THIS TIME, PATIENT ON ROOM AIR SATURATING WELL, WITH IV LINE AT RT HAND#24 WITH ONGOING NSS@75ML/HR INFUSING WELL, PATIENT IS A/OX4 ABLE TO MAKE NEEDS KNOWN, P[KEPT CLEAN AND DRY ALL NEED MET WILL CONTINUE TO MONITOR.
[2022-02-12 21:08] VITALS: BP 158/74
[2022-02-12] MEDS: GABAPENTIN 100 MG CAPSULE PO SCH (22:05)
[2022-02-12] MEDS: ARIPIPRAZOLE 5 MG TABLET PO SCH (22:05)
--- NOTE | 2022-02-13 06:56 | NUR ---
MS RN CLOSING NOTES: PATIENT SLEEP IN BED COMFORTABLY AROUSABLE TO VERBAL STIMULI, BED IN LOW POSITION, CALL LIGHTS WITHIN REQACH, NO COMPLAIN OF PAIN AND DISCOMFORT AT THIS TIME, ON ROOM AIR SATURATING WELL, PATIENT IS A/OX4 AMBULATORY WITH ASSISTANCE, KEPT CLEAN AND DRY ALL NEEDS MET ENDORSE TO INCOMING SHIFT.
[2022-02-13] MEDS: IV NS 0.9% 1,000 ML IV PRN (07:00)
[2022-02-13 07:23] LABS: CALCIUM, SERUM 8.3 mg/dL (8.5-10.1); CREATININE 1.3 mg/dL (0.6-1.3); POTASSIUM 3.9 mmol/L (3.5-5.1)
--- NOTE | 2022-02-13 07:48 | NUR ---
RN OPENING NOTE PATIENT AWAKE IN BED, AO X 4. BED IN LOW POSITION, CALL LIGHTS WITHIN REACH, NO COMPLAINT OF PAIN AT THIS TIME, PATIENT ON ROOM AIR SATURATING WELL, WITH IV LINE AT RT HAND#24 WITH ONGOING NS@75ML/HR INFUSING WELL, PATIENT IS A/OX4 ABLE TO MAKE NEEDS KNOWN, KEPT CLEAN AND DRY ALL NEED MET WILL CONTINUE TO MONITOR / ASSIST
[2022-02-13 08:16] VITALS: BP 155/66
[2022-02-13] MEDS: LEVOFLOXACIN 250 MG /D5W 50 ML 250 MG in PREMIX 1 EA IV SCH (08:22)
[2022-02-13] MEDS: CYANOCOBALAMIN 500 MCG TABLET PO SCH (08:23)
[2022-02-13] MEDS: PANTOPRAZOLE 40 MG TABLET.DR PO SCH (08:23)
[2022-02-13] MEDS: ATORVASTATIN 10 MG TABLET PO SCH (08:23)
[2022-02-13] MEDS: MONTELUKAST SODIUM (10MG) 10 MG TABLET PO SCH (08:23)
[2022-02-13] MEDS: ASPIRIN 81 MG TAB.CHEW PO SCH ×2 (08:23→08:36)
[2022-02-13] MEDS: Fluoxetine 10 mg capsule PO SCH (08:23)
[2022-02-13] MEDS: FERROUS SULFATE (325 MG) 325 MG/TAB TABLET PO SCH (08:23)
[2022-02-13] MEDS: LamoTRIgine 100 MG TABLET PO SCH (08:23)
[2022-02-13] MEDS: LEVOTHYROXINE SODIUM 50 MCG TABLET PO SCH (08:23)
[2022-02-13] MEDS: TOPIRAMATE 25 MG TABLET PO SCH (08:23)
[2022-02-13] MEDS: FLUTICASONE/VILANTEROL 1 EACH BLST.W.DEV IH SCH (08:26)
[2022-02-13] MEDS: FLUTICASONE PROPIONATE 16 GM BOTTLE NS SCH ×2 (08:26→16:08)
[2022-02-13] MEDS ORDERED: LEVO500T90 PO (10:55)
[2022-02-13 16:21] VITALS: BP_SYST 150; BP_SYST 155; BP_DIAS 66; BP_DIAS 74
--- NOTE | 2022-02-13 16:23 | NUR ---
RN NOTE- PT DISCHARGED AT THIS TIME TO PREVIOUS RESIDENCE AT [facility]. VS STABLE, AOX4, CALM INTERACTIVE, DENIES PAIN. MED LIST AND ORDERS GIVEN, ID WRISTBAND REMOVED, IV HEPLOCK REMOVED. ESCORTED OFF UNIT BY STAFF,
== END 2022-02-13 18:31 | DRG 871 ==
LOC: ER 06:59 → MED 10:51 → TELE 02-11 06:06 → MED 02-11 06:12
PROVIDERS: ADMIT Nurse Practitioner Acute Care; ATTEND Nurse Practitioner Acute Care
DX: A41.9 Sepsis, unspecified organism (principal); I21.4 Non-ST elevation (NSTEMI) myocardial infarction; N17.0 Acute kidney failure with tubular necrosis; J15.9 Unspecified bacterial pneumonia; G81.91 Hemiplegia, unspecified affecting right dominant side; F25.9 Schizoaffective disorder, unspecified; G40.909 Epilepsy, unspecified, not intractable, without status epilepticus; E78.5 Hyperlipidemia, unspecified; F32.A Depression, unspecified; Z86.61 Personal history of infections of the central nervous system; Z66 Do not resuscitate; R13.10 Dysphagia, unspecified; J45.909 Unspecified asthma, uncomplicated; N18.9 Chronic kidney disease, unspecified; I12.9 Hypertensive chronic kidney disease with stage 1 through stage 4 chronic kidney disease, or unspecified chronic kidney disease; Z79.82 Long term (current) use of aspirin; G62.9 Polyneuropathy, unspecified; Z20.822 Contact with and (suspected) exposure to COVID-19; E83.42 Hypomagnesemia; Z79.899 Other long term (current) drug therapy; Z96.89 Presence of other specified functional implants
CPT/HCPCS: 36415; 71045-TC; 80048-TC; 80076-TC; 83605-TC; 83735-TC; 84100-TC; 84443-TC; 84484-TC; 85025-TC; 85730-TC; 87040-TC; 87081-TC; 87086-TC; 93307-TC; 97116-TC; 97530-TC; A4216; C9803; G0378; J1956; J7030

== ENCOUNTER 2022-10-03 01:20 | Emergency (ER) | payer OTHER ==
[~2022-10-03] VITALS: Ht 162.6 cm; Wt 105.2 kg
[~2022-10-03 01:20] MED LIST changes: -DIPH25CA83 PO; +LEVO500T90 PO; -PRED20TA PO
--- NOTE | 2022-10-03 01:25 | NUR ---
CARLI FROM A FACILITY FOR C/O WORSENING R GROIN/ R THIGH PAIN X 4 DAYS. PT DENIES FALL AND TRAUMA. PT IS AAOX4. ABLE TO MAKE NEEDS KNOWN. VITALS CHECKED.
--- NOTE | 2022-10-03 01:42 | NUR ---
SEEN BY DR SHEA AT BEDSIDE
[2022-10-03] MEDS ORDERED: HYDROCODONE/APAP 5/325MG TABLET ONE (02:01)
[2022-10-03] MEDS: HYDROCODONE/APAP 5/325MG TABLET PO ONE (02:05)
[2022-10-03] MEDS ORDERED: HYDR-4209 PO (02:53)
[2022-10-03] MEDS ORDERED: KETO10TA2 PO (02:54)
--- NOTE | 2022-10-03 03:02 | NUR ---
REPORT GIVEN TO KAROL AT [facility]. [facility] ETA: 10 MIN
--- NOTE | 2022-10-03 03:11 | NUR ---
REPORT GIVEN TO MARYELLEN REYES OF [facility]
--- NOTE | 2022-10-03 03:33 | NUR ---
Patient discharged to home in stable condition. Written and verbal after care instructions given. Patient verbalizes understanding of instruction.
[2022-10-03 03:34] VITALS: BP 144/86
== END 2022-10-03 03:36 ==
LOC: ER 01:22
DX: S76.211A Strain of adductor muscle, fascia and tendon of right thigh, initial encounter (principal); M79.651 Pain in right thigh; I10 Essential (primary) hypertension; J45.909 Unspecified asthma, uncomplicated; Z98.890 Other specified postprocedural states; Z88.0 Allergy status to penicillin; Z91.010 Allergy to peanuts; Z88.8 Allergy status to other drugs, medicaments and biological substances; Z79.82 Long term (current) use of aspirin; Z79.899 Other long term (current) drug therapy; X58.XXXA Exposure to other specified factors, initial encounter; Y93.89 Activity, other specified; Y92.89 Other specified places as the place of occurrence of the external cause; Y99.8 Other external cause status

== ENCOUNTER 2022-10-07 20:55 | Emergency (ER) | payer OTHER ==
[~2022-10-07] VITALS: Ht 162.6 cm; Wt 105.2 kg
[~2022-10-07 20:55] MED LIST changes: +HYDR-4209 PO; +KETO10TA2 PO
--- NOTE | 2022-10-07 21:26 | NUR ---
TO ER BED 11, [id number] FROM SNF C/O HEADACHE THAT STARTED SUNDAY AND FELT WORSE TONIGHT. PT IS ALERT AND ORIENTED. RR EVEN AND NON LABORED. CONNECTED TO POX AND HEART MONITOR. AWAITING MD ORDERS
[2022-10-07] MEDS ORDERED: PROCHLORPERAZINE EDISYLATE 10 MG/2 ML VIAL ONE (21:46)
[2022-10-07] MEDS ORDERED: diphenhydrAMINE HCL 50 MG/ML VIAL ONE (21:46)
[2022-10-07] MEDS ORDERED: KETOROLAC TROMETHAMINE 15 MG/ML VIAL ONE (21:46)
[2022-10-07] MEDS ORDERED: diphenhydrAMINE HCL 50 MG/ML VIAL IV ONE (22:00)
[2022-10-07] MEDS ORDERED: PROCHLORPERAZINE EDISYLATE 10 MG/2 ML VIAL IVP ONE (22:00)
[2022-10-07] MEDS ORDERED: IV NS 0.9% 1,000 ML IV ONE (22:00)
[2022-10-07] MEDS ORDERED: KETOROLAC TROMETHAMINE INJ 30 MG/ML VIAL IV ONE (22:00)
--- NOTE | 2022-10-07 22:07 | NUR ---
IV LINE ESTABLISHED, [id number]
--- NOTE | 2022-10-08 03:04 | NUR ---
[facility] ETA 9AM
--- NOTE | 2022-10-08 06:44 | NUR ---
IV removed. Catheter intact and site benign. Pressure and 4x4 applied to site. No bleeding noted.
--- NOTE | 2022-10-08 07:01 | NUR ---
REPORT GIVEN TO HEATH FOR KANIKA AT [facility]
--- NOTE | 2022-10-08 07:02 | NUR ---
[facility] AT BEDSIDE TO TRANSPORTATION
[2022-10-08 07:17] VITALS: BP 138/87
== END 2022-10-08 07:17 ==
LOC: ER 21:02
DX: R51.9 Headache, unspecified (principal); I10 Essential (primary) hypertension; J45.909 Unspecified asthma, uncomplicated; E86.0 Dehydration; Z98.890 Other specified postprocedural states; Z79.899 Other long term (current) drug therapy; Z79.82 Long term (current) use of aspirin; Z91.040 Latex allergy status; Z88.0 Allergy status to penicillin; Z91.018 Allergy to other foods; Z88.8 Allergy status to other drugs, medicaments and biological substances
CPT/HCPCS: 99284; 96374; 96375; 96361; 70450; J0780; J1200; J7030; J1885

== ENCOUNTER 2022-12-03 09:44 | Emergency (ER) | payer OTHER ==
[~2022-12-03] VITALS: Ht 167.6 cm; Wt 112.5 kg
[2022-12-03] MEDS ORDERED: CYCLOBENZAPRINE 10 MG TABLET ONE (10:10)
[2022-12-03] MEDS ORDERED: CYCLOBENZAPRINE 10 MG TABLET PO ONE (10:30)
[2022-12-03] MEDS ORDERED: CYCL5TAB PO (10:46)
[2022-12-03] MEDS ORDERED: LIDO30AD10 TP (10:46)
--- NOTE | 2022-12-03 10:50 | NUR ---
CALLED [facility] FOR TRANSPORT ETA 1200
--- NOTE | 2022-12-03 12:46 | NUR ---
IV removed. Catheter intact and site benign. Pressure and 4x4 applied to site. No bleeding noted.Patient discharged to home in stable condition. Written and verbal after care instructions given. Patient verbalizes understanding of instruction.
[2022-12-03 12:47] VITALS: BP 132/64
== END 2022-12-03 12:48 ==
LOC: ER 09:53
DX: S33.5XXA Sprain of ligaments of lumbar spine, initial encounter (principal); I10 Essential (primary) hypertension; J45.909 Unspecified asthma, uncomplicated; Z79.899 Other long term (current) drug therapy; Z79.82 Long term (current) use of aspirin; Z98.890 Other specified postprocedural states; Z88.0 Allergy status to penicillin; Z88.8 Allergy status to other drugs, medicaments and biological substances; Z91.040 Latex allergy status; Z91.010 Allergy to peanuts; V09.9XXA Pedestrian injured in unspecified transport accident, initial encounter; Y93.89 Activity, other specified; Y92.89 Other specified places as the place of occurrence of the external cause; Y99.8 Other external cause status